=== PATIENT | male | born 1935 | race Caucasian/White ===

== ENCOUNTER → 2018-05-13 | Outpatient (CLI) | payer MEDICARE, OTHER ==
--- NOTE | 2018-05-13 12:46 | XR ---
Abdomen HISTORY: Left renal stone Frontal view of the abdomen on 2 images. There is a scoliosis. Lung bases are clear. No evident pneumoperitoneum or bowel obstruction. Degener ative disc changes are present in the lumbar spine. Question a calcification at the level of the L3 transverse process on the left superimposed over the shadow. There are calcifications within the pelvis. IMPRESSION: Vague density adjacent to the left L3 transverse process, correlate for possible renal pe lvic or ureteral calcification. CT would be of benefit.
== END | disposition home or self-care (01) ==
LOC: RADXRMAIN 10:07
PROVIDERS: ATTEND Urology
DX: N20.0 Calculus of kidney (principal)
CPT/HCPCS: 74018

== ENCOUNTER → 2018-05-19 | Outpatient (CLI) | payer MEDICARE ==
--- NOTE | 2018-05-19 15:58 | CT ---
EXAMINATION TYPE: CT abdomen pelvis wo con DATE OF EXAM: 05/19/2018 COMPARISON: Abdominal radiograph dated 05/13/2018 HISTORY: Calculus of kidney CT DLP: 970.70 mGycm Automated exposure control for dose reduction was used. TECHNIQUE: Helical acquisition of images was performed from the lung bases through the pelvis. FINDINGS: LUNG BASES: There is a benign right lung base calcified granuloma. Bibasilar pleural-parenchymal scar ring is seen. Coronary artery calcifications are partially visualized. LIVER/GB: Fluid attenuated probable cyst is seen near the hepatic dome on series 3 image 31 measuring 8 mm. Remainder of the liver is unremarkable. Gallbladder demonstrates no evidence of cholelithiasis . PANCREAS: No significant abnormality is seen. SPLEEN: No significant abnormality is seen. ADRENALS: There is symmetric prominence of the adrenal glands although they maintain their normal adr eniform shape suggestive of benign adrenal gland hyperplasia. KIDNEYS: Ill-defined fluid attenuated left lower pole renal lesion measures approximately 1.4 cm and likely represents a cyst. Minimal nonspecific bilateral perinephric fat stranding is seen. No evidenc e hydronephrosis or nephrolithiasis. No calculi are seen along the courses of the ureters although ad jacent vascular calcifications are present. No calculi within the urinary bladder identified. FREE AIR: No free air is visualized ADENOPATHY: Solitary prominent but nonenlarged peripancreatic 9 mm short axis lymph node is seen on series 3 image 58. No greater than 1 cm short axis lymph nodes are seen within the abdomen or pelvis. REPRODUCTIVE ORGANS: Prostate gland is slightly heterogenous. OSSEOUS STRUCTURES: Moderate multilevel degenerative changes of the spine. S-shaped scoliotic curvat ure of the thoracolumbar spine. No vertebral body height loss or malalignment. Multilevel degenerativ e disc disease is seen. BOWEL: Scattered colonic diverticula are present without pericolonic fat stranding. No dilated large or small bowel. No evidence of REDUCTION. Appendix is air-filled and within normal limits of size. OTHER: Abdominal aorta is tortuous in course but of normal caliber. Moderate calcific atheromatous ch anges are seen of the abdominal aorta and its branches. IMPRESSION: THE PREVIOUSLY QUESTIONED VAGUE DENSITY OVER THE L3 VERTEBRAL TRANSVERSE PROCESS RELATES TO VASCULAR CALCIFICATIONS. NO EVIDENCE OF OBSTRUCTIVE UROPATHY. NO NEPHROLITHIASIS.
== END | disposition home or self-care (01) ==
LOC: RADCTMAIN 15:12
PROVIDERS: ATTEND Urology
DX: N20.0 Calculus of kidney (principal); Z88.0 Allergy status to penicillin; Z88.2 Allergy status to sulfonamides; Z88.5 Allergy status to narcotic agent
CPT/HCPCS: 74176

== ENCOUNTER → 2018-08-23 | Outpatient (CLI) | payer MEDICARE, OTHER ==
--- NOTE | 2018-08-23 13:43 | US ---
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 Patient states he had yearly ultrasounds in the past for a AAA. EXAM MEASUREMENTS: Abdominal Aorta: Proximal: 2.1cm Mid: 2.0cm Distal: 1.6cm Bifurcation: Rt:1.4cm, Lt:1.2cm IMPRESSION: No sonographic evidence of abdominal aortic aneurysm in the visualized portions of the ab dominal aorta or common iliac arteries.
== END | disposition home or self-care (01) ==
LOC: RADUSWWP 12:52
PROVIDERS: ATTEND Family Medicine
DX: I71.2 Thoracic aortic aneurysm, without rupture (principal)
CPT/HCPCS: 93979

== ENCOUNTER → 2018-09-05 | Outpatient (CLI) | payer MEDICARE, OTHER ==
--- NOTE | 2018-09-05 17:06 | ECHOF ---
Referral Reason:I71.2 Thoracic Aortic Aneurysm, Without Rupture MEASUREMENTS -------- HEIGHT: 175.3 cm WEIGHT: 95.3 kg BP: IVSd: 1.4 cm (0.6 - 1.1) LVIDd: 3.9 cm (3.9 - 5.3) LVPWd: 1.4 cm (0.6 - 1.1) IVSs: 1.7 cm LVIDs: 3.6 cm LVPWs: 1.3 cm Ao Diam: 4.7 cm (2.0 - 3.7) AV Cusp: 1.7 cm (1.5 - 2.6) LA Diam: 3.3 cm (2.7 - 3.8) MV E Cesario: 0.34 m/s MV DecT: 169 ms MV A Cesario: 0.59 m/s MV E/A Ratio: 0.57 RAP: 5.00 mmHg RVSP: 19.78 mmHg FINDINGS -------- Sinus rhythm. This was a technically adequate study. The left ventricular size is normal. There is moderate concentric left ventricular hypertrophy. O verall left ventricular systolic function is low-normal with, an EF between 50 - 55 %. The right ventricle is normal in size. The left atrial size is normal. The right atrial size is normal. There is mild aortic valve sclerosis. There is mild aortic regurgitation. AOV is possible Bicuspi d. 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 Mild mitral annular calcification present. No mitral regurgitation. Mild tricuspid regurgitation present. There is no evidence of pulmonary hypertension. The right v entricular systolic pressure, as measured by Doppler, is 19.78mmHg. There is no pulmonic regurgitation present. There is no pericardial effusion. CONCLUSIONS -------- 1. The left ventricular size is normal. 2. There is moderate concentric left ventricular hypertrophy. 3. Overall left ventricular systolic function is low-normal with, an EF between 50 - 55 %. 4. The right ventricle is normal in size. 5. The left atrial size is normal. 6. The right atrial size is normal. 7. There is mild aortic valve sclerosis. 8. There is mild aortic regurgitation. 9. AOV is possible Bicuspid. 10. 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 11. Mild mitral annular calcification present. 12. No mitral regurgitation. 13. Mild tricuspid regurgitation present. 14. There is no evidence of pulmonary hypertension. 15. The right ventricular systolic pressure, as measured by Doppler, is 19.78mmHg. 16. There is no pulmonic regurgitation present. 17. There is no pericardial effusion. LIGHT RAIL TRANSIT OPERATOR: Namita Gibbs RDCS
== END | disposition home or self-care (01) ==
LOC: RADECHMAIN 16:06
PROVIDERS: ATTEND Family Medicine
DX: I08.2 Rheumatic disorders of both aortic and tricuspid valves (principal)
CPT/HCPCS: 93306

== ENCOUNTER → 2019-04-25 | Outpatient (CLI) | payer MEDICARE, OTHER ==
--- NOTE | 2019-04-25 14:52 | US ---
EXAMINATION TYPE: US carotid duplex BILAT DATE OF EXAM: 04/25/2019 COMPARISON: NONE CLINICAL HISTORY: R42 VERTIGO. Vertigo EXAM MEASUREMENTS: RIGHT: Peak Systolic Velocity (PSV) cm/sec ----- Right CCA: 68.2 ----- Right ICA: 55.3 ----- Right ECA: 95.5 ICA/CCA ratio: 0.8 RIGHT: End Diastole cm/sec ----- Right CCA: 15.7 ----- Right ICA: 19.3 ----- Right ECA: 12.7 LEFT: Peak Systolic Velocity (PSV) cm/sec ----- Left CCA: 59.7 ----- Left ICA: 56.6 ----- Left ECA: 63.8 ICA/CCA ratio: 0.9 LEFT: End Diastole cm/sec ----- Left CCA: 18.9 ----- Left ICA: 19.8 ----- Left ECA: 15.0 VERTEBRALS (direction of flow): Right Vertebral: Antegrade Left Vertebral: Antegrade Rhythm: Normal Ny scale images show no significant plaque formation carotid bulb level bilaterally. Velocity measu rements and ratios are within normal limits and visualized portions of both internal carotid arteries . IMPRESSION: No hemodynamically significant stenosis is seen in either internal carotid artery. Criteria for Assigning % of Stenosis / Diameter reduction (Estimation based on the indirect measurements of the internal carotid artery velocities (ICA PSV). 1. Normal (no stenosis)=ICA PSV < 125 cm/s: ratio < 2.0: ICA EDV<40 cm/s. 2. Less than 50% stenosis=ICA PSV < 125 cm/s: ratio < 2.0: ICA EDV<40 cm/s. 3. 50 to 69% stenosis=ICA PSV of 125 to 230 cm/s: ration 2.0 ? 4.0: ICA EDV 40-100 cm/s. 4. Greater than 70% stenosis to near occlusion= ICA PSV > 230 cm/s: ratio > 4.0: ICA EDV > 100 cm/s. 5. Near occlusion= ICA PSV velocities may be low or undetectable: variable ratio and ICA EDV. 6. Total occlusion=unable to detect flow.
== END | disposition home or self-care (01) ==
LOC: RADUSWWP 14:15
PROVIDERS: ATTEND Family Medicine
DX: R42 Dizziness and giddiness (principal)
CPT/HCPCS: 93880

== ENCOUNTER → 2019-08-16 | Outpatient (CLI) | payer MEDICARE, OTHER ==
[~2019-08-16] MED LIST: DOBUTamine DRIP for NUC MED 500 MG in DEXTROSE/WATER 1 250ML.BAG IV ONE
--- NOTE | 2019-08-16 15:12 | ECHOS ---
STRESS ECHOCARDIOGRAM INDICATIONS: Dyspnea, dizziness. BASELINE HEART RATE: 69 BASELINE BLOOD PRESSURE: 120/82 MAXIMUM HEART RATE: 177 MAXIMUM BLOOD PRESSURE: 139/65 85% MPHR: 118 100% MPHR: 137 MAXIMUM STAGE REACHED: 3 TOTAL EXERCISE TIME: 06/17 CLINICAL INFORMATION: Patient was given dobutamine infusion according to the standard protocol. Peak dobutamine infusion rate was 15 mcg/kg. Initially, intermittent premature atrial contractions were noted. Subsequently patient developed was supraventricular tachycardia at a rate of 170 beats per minute. On dobutamine infusion was terminated and patient converted back into the normal sinus rhythm. The baseline echocardiographic images reveals normal left ventricular chamber size with normal left ventricular systolic function. At the peak dose of dobutamine infusion, normal increase in the wall thickness and contractility is noted. FINAL IMPRESSION: This dobutamine stress echocardiographic study is negative for stress-induced ischemia. Intermittent premature atrial contractions were noted during initially during dobutamine infusion and then patient developed sustained supraventricular tachycardia which terminated after the dobutamine infusion was stopped. MMODL / IJN: [id number] /
== END | disposition home or self-care (01) ==
LOC: RADNMMAIN 09:03
PROVIDERS: ATTEND Family Medicine
DX: I47.1 Supraventricular tachycardia (principal); I49.1 Atrial premature depolarization
CPT/HCPCS: C8930; J1250; Q9950; 93351

== ENCOUNTER 2019-08-25 17:46 | Observation (INO) | payer MEDICARE, OTHER ==
--- NOTE | 2019-08-25 18:24 | ED ---
General Adult HPI <AsiaMillicentLilliana Michael - Last Filed: 08/25/19 19:42> - General Source: patient, EMS Mode of arrival: EMS Limitations: no limitations <Francesco Syed - Last Filed: 08/25/19 21:36> - General Chief complaint: Syncope Stated complaint: syncope/fall Time Seen by Provider: 08/25/19 18:04 - History of Present Illness Initial comments: Dictation was produced using [employer] dictation software. please excuse any grammatical, word or spelling errors. Chief Complaint: 83-year-old male presents after fall. History of Present Illness: 83-year-old male who presents after fall. Patient states that he was leaning over on a porch that was elevated 5 feet off the ground. He was trying to take picture of some trees when mixing her members he is mildly ground. Patient states he doesn't really remember falling. He does complain of some left-sided pain. Patient was on the ground for approximately 5 minutes when he was witnessed to be on the ground by his . EMS was called patient's transfer to the emergency department. Patient denies any history of anticoagulation medications. Besides some mild left flank pain patient has no other pain in his body. He was found have a laceration to his nose. The ROS documented in this emergency department record has been reviewed and confirmed by me. Those systems with pertinent positive or negative responses have been documented in the HPI. All other systems are other negative and/or noncontributory. PHYSICAL EXAM: General Impression: Alert and oriented x3, not in acute distress HEENT: Normocephalic atraumatic, extra-ocular movements intact, pupils equal and reactive to light bilaterally, mucous membranes moist, no septal hematoma, 170 laceration over the bridge of his nose without active bleeding Cardiovascular: Heart regular rate and rhythm, S1&S2 audible, no murmurs, rubs or gallops Chest: Lungs clear to auscultation bilaterally, no rhonchi, no wheeze, no rales Abdomen: Bowel sounds present, abdomen soft, non-tender, non-distended, no organomegaly Musculoskeletal: Pulses present and equal in all extremities, no peripheral edema motor extremity is ranged without complications Motor: no focal deficits noted Neurological: CN II-XII grossly intact, no focal motor or sensory deficits noted Skin: Intact with no visualized rashes Psych: Normal affect and mood ED course: 83 yo Male presents after episode of syncope. Patient suffered a fall proximal 5 feet. Vital signs upon arrival shows mild hypoxia 91 on room air, worse vital signs within acceptable limits. Return evaluation obtained. CBC, coag panel, metabolic panel is unremarkable. Urinalysis negative. Rapid urine drug screen and serum alcohol is negative. Computed tomography scan of the brain, C-spine, chest abdomen and pelvis shows n o acute traumatic injuries. There is concern that patient experienced a cardiac-related syncope given his age and HPI. Discussed patient case Dr. Infante who is willing to accept patients care given that patient experience atraumatic event. Dr. Bosch and cardiology will be on consultation. She reevaluated bedside. He continues to be well-appearing. EKG interpretation: Ventricular rate 74, sinus rhythm with first-degree AV block,. Interval to 40, QS 100, QTC 468. No KS prolongation, no QTC prolongation, no ST or T-wave changes noted. Overall, this EKG is unremarkable (Francesco Syed) - Related Data Home Medications Medication Instructions Recorded Confirmed Cholecalciferol [Vitamin D3] 2,000 unit PO DAILY 05/02/15 08/25/19 Ibuprofen [Motrin] 400 mg PO Q6HR PRN 05/02/15 08/25/19 Lisinopril [Prinivil] 5 mg PO DAILY 05/02/15 08/25/19 Metoprolol Tartrate 12.5 mg PO DAILY 05/02/15 08/25/19 Pravastatin Sodium [Pravachol] 10 mg PO DAILY 05/02/15 08/25/19 Flaxseed [Flaxseed Oil] 1,000 mg PO DAILY 12/06/15 08/25/19 Multivitamin [Men's Multi-Vitamin] 1 tab PO DAILY 12/06/15 08/25/19 [place]-3 Fatty Acids/Fish Oil [Fish 1 cap PO DAILY 12/06/15 08/25/19 Oil 1,000 mg Softgel] Vit C/E/Zn/Coppr/Lutein/Zeaxan 2 cap PO DAILY 12/06/15 08/25/19 [Preservision Areds 2 Softgel] Aspirin EC [Ecotrin Low Dose] 81 mg PO DAILY 08/25/19 08/25/19 Finasteride [Proscar] 5 mg PO DAILY 08/25/19 08/25/19 L.acidoph,Paracasei, B.lactis 1 cap PO DAILY 08/25/19 08/25/19 [Probiotic] Tamsulosin HCl [Flomax] 0.4 mg PO DAILY 08/25/19 08/25/19 Previous Rx's Medication Instructions Recorded traMADol HCL [Ultram] 50 mg PO Q4HR PRN #60 tab 03/20/16 Allergies Allergy/AdvReac Type Severity Reaction Status Date / Time codeine Allergy Nausea & Verified 08/25/19 19:59 Vomiting hydrocodone bitartrate Allergy Nausea & Verified 08/25/19 19:59 [From Vicodin] Vomiting oxycodone Allergy Nausea & Verified 08/25/19 19:59 Vomiting Penicillins Allergy Nausea & Verified 08/25/19 19:59 Vomiting Review of Systems ROS Other: All systems not noted in ROS Statement are negative. <Lilliana Betancourt - Last Filed: 08/25/19 19:42> ROS Other: All systems not noted in ROS Statement are negative. <Francesco Syed - Last Filed: 08/25/19 21:36> ROS Statement: Those systems with pertinent positive or pertinent negative responses have been documented in the HPI. Past Medical History Past Medical History: COPD, Hyperlipidemia, Hypertension, Musculoskeletal Disorder, Osteoarthritis (OA), Pneumonia Additional Past Medical History / Comment(s): PNEUMONIA (12/2015), DDD, BACK PAIN., LEFT SHOULDER PAIN. History of Any Multi-Drug Resistant Organisms: None Reported Past Surgical History: Back Surgery, Hernia Repair, Joint Replacement, Orthopedic Surgery Additional Past Surgical History / Comment(s): RIGHT KNEE ARTHROSCOPY, INGUINAL HERNIA X3, BACK SURGERY X2, RIGHT SHOULDER SURGERY X3 WITH TOTAL SHOULDER, LEFT SHOULDER SURGERY X2.5-16 revision total left shoulder Past Anesthesia/Blood Transfusion Reactions: Motion Sickness, Postoperative Nausea & Vomiting (PONV) Past Psychological History: No Psychological Hx Reported Smoking Status: Former smoker Past Alcohol Use History: None Reported Past Drug Use History: None Reported - Past Family History Mother Family Medical History: No Reported History <Francesco Syed - Last Filed: 08/25/19 21:36> General Exam Limitations: no limitations <Francesco Syed - Last Filed: 08/25/19 21:36> Course Vital Signs 08/25/19 17:54 Temperature 97.9 F Pulse Rate 73 Respiratory 18 Rate Blood Pressure 152/103 O2 Sat by Pulse 91 L Oximetry Procedures - Laceration Laceration #1 Consent Obtained: verbal consent Indication: laceration Site: face (Top of nasal bone) Size (cm): 1 Description: linear Depth: simple, single layer Anesthetic Used: lidocaine 1% Anesthesia Technique: local infiltration Amount (mls): 2 Pre-repair: irrigated extensively Type of Sutures: nylon Size of Sutures: 5-0 Number of Sutures: 3 Technique: simple, interrupted Patient Tolerated Procedure: well <Lilliana Betancourt L - Last Filed: 08/25/19 19:42> Medical Decision Making - Lab Data Result diagrams: 08/25/19 18:18 08/25/19 18:18 <Lilliana Betancourt - Last Filed: 08/25/19 19:42> - Lab Data Result diagrams: 08/25/19 18:18 08/25/19 18:18 <Francesco Syed - Last Filed: 08/25/19 21:36> - Lab Data Lab Results 08/25/19 08/25/19 08/25/19 Range/Units 18:18 18:18 18:18 WBC 7.0 (3.8-10.6) k/uL RBC 4.42 (4.30-5.90) m/uL Hgb 14.0 (13.0-17.5) gm/dL Hct 39.6 (39.0-53.0) % MCV 89.7 (80.0-100.0) fL MCH 31.6 (25.0-35.0) pg MCHC 35.3 (31.0-37.0) g/dL RDW 12.5 (11.5-15.5) % Plt Count 162 (150-450) k/uL Neutrophils % 76 % Lymphocytes % 17 % Monocytes % 4 % Eosinophils % 2 % Basophils % 1 % Neutrophils # 5.3 (1.3-7.7) k/uL Lymphocytes # 1.2 (1.0-4.8) k/uL Monocytes # 0.3 (0-1.0) k/uL Eosinophils # 0.1 (0-0.7) k/uL Basophils # 0.0 (0-0.2) k/uL PT (9.0-12.0) sec INR (<1.2) APTT (22.0-30.0) sec Sodium 139 (137-145) mmol/L Potassium 4.7 (3.5-5.1) mmol/L Chloride 110 H (98-107) mmol/L Carbon Dioxide 20 L (22-30) mmol/L Anion Gap 9 mmol/L BUN 19 (9-20) mg/dL Creatinine 0.96 (0.66-1.25) mg/dL Est GFR (CKD-EPI)AfAm 86 (>60 ml/min/1.73 sqM) Est GFR (CKD-EPI)NonAf 74 (>60 ml/min/1.73 sqM) Glucose 99 (74-99) mg/dL Plasma Lactic Acid Mateo 1.4 (0.7-2.0) mmol/L Calcium 8.3 L (8.4-10.2) mg/dL Total Bilirubin 1.0 (0.2-1.3) mg/dL AST 46 (17-59) U/L ALT 35 (21-72) U/L Alkaline Phosphatase 84 (38-126) U/L Troponin I (0.000-0.034) ng/mL Total Protein 6.6 (6.3-8.2) g/dL Albumin 3.8 (3.5-5.0) g/dL Urine Color Urine Appearance (Clear) Urine pH (5.0-8.0) Ur Specific [place] (1.001-1.035) Urine Protein (Negative) Urine Glucose (UA) (Negative) Urine Ketones (Negative) Urine Blood (Negative) Urine Nitrite (Negative) Urine Bilirubin (Negative) Urine Urobilinogen (<2.0) mg/dL Ur Leukocyte Esterase (Negative) Urine Opiates Screen (NotDetected) Ur Oxycodone Screen (NotDetected) Urine Methadone Screen (NotDetected) Ur Propoxyphene Screen (NotDetected) Ur Barbiturates Screen (NotDetected) U Tricyclic Antidepress (NotDetected) Ur Phencyclidine Scrn (NotDetected) Ur Amphetamines Screen (NotDetected) U Methamphetamines Scrn (NotDetected) U Benzodiazepines Scrn (NotDetected) Urine Cocaine Screen (NotDetected) U Marijuana (THC) Screen (NotDetected) Serum Alcohol <10 mg/dL Blood Type Blood Type Recheck Bld Type Recheck Status Antibody Screen Spec Expiration Date 08/25/19 08/25/19 08/25/19 Range/Units 18:18 18:18 18:18 WBC (3.8-10.6) k/uL RBC (4.30-5.90) m/uL Hgb (13.0-17.5) gm/dL Hct (39.0-53.0) % MCV (80.0-100.0) fL MCH (25.0-35.0) pg MCHC (31.0-37.0) g/dL RDW (11.5-15.5) % Plt Count (150-450) k/uL Neutrophils % % Lymphocytes % % Monocytes % % Eosinophils % % Basophils % % Neutrophils # (1.3-7.7) k/uL Lymphocytes # (1.0-4.8) k/uL Monocytes # (0-1.0) k/uL Eosinophils # (0-0.7) k/uL Basophils # (0-0.2) k/uL PT 11.2 (9.0-12.0) sec INR 1.1 (<1.2) APTT 21.4 L (22.0-30.0) sec Sodium (137-145) mmol/L Potassium (3.5-5.1) mmol/L Chloride (98-107) mmol/L Carbon Dioxide (22-30) mmol/L Anion Gap mmol/L BUN (9-20) mg/dL Creatinine (0.66-1.25) mg/dL Est GFR (CKD-EPI)AfAm (>60 ml/min/1.73 sqM) Est GFR (CKD-EPI)NonAf (>60 ml/min/1.73 sqM) Glucose (74-99) mg/dL Plasma Lactic Acid Mateo (0.7-2.0) mmol/L Calcium (8.4-10.2) mg/dL Total Bilirubin (0.2-1.3) mg/dL AST (17-59) U/L ALT (21-72) U/L Alkaline Phosphatase (38-126) U/L Troponin I <0.012 (0.000-0.034) ng/mL Total Protein (6.3-8.2) g/dL Albumin (3.5-5.0) g/dL Urine Color Urine Appearance (Clear) Urine pH (5.0-8.0) Ur Specific [place] (1.001-1.035) Urine Protein (Negative) Urine Glucose (UA) (Negative) Urine Ketones (Negative) Urine Blood (Negative) Urine Nitrite (Negative) Urine Bilirubin (Negative) Urine Urobilinogen (<2.0) mg/dL Ur Leukocyte Esterase (Negative) Urine Opiates Screen (NotDetected) Ur Oxycodone Screen (NotDetected) Urine Methadone Screen (NotDetected) Ur Propoxyphene Screen (NotDetected) Ur Barbiturates Screen (NotDetected) U Tricyclic Antidepress (NotDetected) Ur Phencyclidine Scrn (NotDetected) Ur Amphetamines Screen (NotDetected) U Methamphetamines Scrn (NotDetected) U Benzodiazepines Scrn (NotDetected) Urine Cocaine Screen (NotDetected) U Marijuana (THC) Screen (NotDetected) Serum Alcohol mg/dL Blood Type O Positive Blood Type Recheck No Previous Record Bld Type Recheck Status CABO Indicated Antibody Screen NEGATIVE Spec Expiration Date 08/28/2019231708/25/19 Range/Units 19:12 WBC (3.8-10.6) k/uL RBC (4.30-5.90) m/uL Hgb (13.0-17.5) gm/dL Hct (39.0-53.0) % MCV (80.0-100.0) fL MCH (25.0-35.0) pg MCHC (31.0-37.0) g/dL RDW (11.5-15.5) % Plt Count (150-450) k/uL Neutrophils % % Lymphocytes % % Monocytes % % Eosinophils % % Basophils % % Neutrophils # (1.3-7.7) k/uL Lymphocytes # (1.0-4.8) k/uL Monocytes # (0-1.0) k/uL Eosinophils # (0-0.7) k/uL Basophils # (0-0.2) k/uL PT (9.0-12.0) sec INR (<1.2) APTT (22.0-30.0) sec Sodium (137-145) mmol/L Potassium (3.5-5.1) mmol/L Chloride (98-107) mmol/L Carbon Dioxide (22-30) mmol/L Anion Gap mmol/L BUN (9-20) mg/dL Creatinine (0.66-1.25) mg/dL Est GFR (CKD-EPI)AfAm (>60 ml/min/1.73 sqM) Est GFR (CKD-EPI)NonAf (>60 ml/min/1.73 sqM) Glucose (74-99) mg/dL Plasma Lactic Acid Mateo (0.7-2.0) mmol/L Calcium (8.4-10.2) mg/dL Total Bilirubin (0.2-1.3) mg/dL AST (17-59) U/L ALT (21-72) U/L Alkaline Phosphatase (38-126) U/L Troponin I (0.000-0.034) ng/mL Total Protein (6.3-8.2) g/dL Albumin (3.5-5.0) g/dL Urine Color Light Yellow Urine Appearance Clear (Clear) Urine pH 6.5 (5.0-8.0) Ur Specific [place] 1.012 (1.001-1.035) Urine Protein Negative (Negative) Urine Glucose (UA) Negative (Negative) Urine Ketones 1+ H (Negative) Urine Blood Negative (Negative) Urine Nitrite Negative (Negative) Urine Bilirubin Negative (Negative) Urine Urobilinogen <2.0 (<2.0) mg/dL Ur Leukocyte Esterase Negative (Negative) Urine Opiates Screen Not Detected (NotDetected) Ur Oxycodone Screen Not Detected (NotDetected) Urine Methadone Screen Not Detected (NotDetected) Ur Propoxyphene Screen Not Detected (NotDetected) Ur Barbiturates Screen Not Detected (NotDetected) U Tricyclic Antidepress Not Detected (NotDetected) Ur Phencyclidine Scrn Not Detected (NotDetected) Ur Amphetamines Screen Not Detected (NotDetected) U Methamphetamines Scrn Not Detected (NotDetected) U Benzodiazepines Scrn Not Detected (NotDetected) Urine Cocaine Screen Not Detected (NotDetected) U Marijuana (THC) Screen Not Detected (NotDetected) Serum Alcohol mg/dL Blood Type Blood Type Recheck Bld Type Recheck Status Antibody Screen Spec Expiration Date Disposition <Lilliana Betancourt - Last Filed: 08/25/19 19:42> Decision Time: 21:36 <Francesco Syed - Last Filed: 08/25/19 21:36> Clinical Impression: Syncope Disposition: ADMITTED IP TO THIS HOSP Condition: Fair Referrals: Jomar Lenoe MD [Primary Care Provider] - 1-2 days
[2019-08-25 18:36] LABS: Basophils % (A) 1 %; Eosinophils # (A) 0.1 k/uL (0-0.7); Eosinophils % (A) 2 %; HCT 39.6 % (39.0-53.0); Lymphocytes # (A) 1.2 k/uL (1.0-4.8); Lymphocytes % (A) 17 %; MCH 31.6 pg (25.0-35.0); MCHC 35.3 g/dL (31.0-37.0); MCV 89.7 fL (80.0-100.0); Mean Platelet Volume 5.7; Monocytes # (A) 0.3 k/uL (0-1.0); Monocytes % (A) 4 %; Neutrophils # (A) 5.3 k/uL (1.3-7.7); Neutrophils % (A) 76 %; Platelet Count 162 k/uL (150-450); RBC 4.42 m/uL (4.30-5.90); RDW 12.5 % (11.5-15.5)
[2019-08-25 18:46] LABS: ALT 35 U/L (21-72); AST 46 U/L (17-59); African American GFR (CKD) 86 (>60 ml/min/1.73 sqM); Albumin 3.8 g/dL (3.5-5.0); Alcohol <10 mg/dL; Alkaline Phosphatase 84 U/L (38-126); Anion Gap 9 mmol/L; Blood Urea Nitrogen 19 mg/dL (9-20); Calcium 8.3 mg/dL (8.4-10.2); Carbon Dioxide 20 mmol/L (22-30); Chloride 110 mmol/L (98-107); Glucose 99 mg/dL (74-99); Sodium 139 mmol/L (137-145); Total Protein 6.6 g/dL (6.3-8.2)
[2019-08-25 18:48] LABS: Potassium 4.7 mmol/L (3.5-5.1)
[2019-08-25] MEDS ORDERED: LIDOCAINE 1%-EPI 1:100,000 20 ML VIAL SQ STA (18:58)
[2019-08-25 18:59] LABS: INR 1.1 (<1.2); Prothrombin Time 11.2 sec (9.0-12.0)
[2019-08-25 19:02] LABS: Partial Thromboplastin Time 21.4 sec (22.0-30.0)
[2019-08-25] MEDS ORDERED: LIDOCAINE 1% INJ 10MG/ML (20 ML MDV) SQ ONE (19:09)
--- NOTE | 2019-08-25 19:09 | XR ---
EXAMINATION TYPE: XR pelvis AP view DATE OF EXAM: 08/25/2019 COMPARISON: 05/13/2018 HISTORY: Pain TECHNIQUE: Single view FINDINGS: The pelvic ring is intact. Proximal femurs and hip joints are intact. Sacroiliac joints flako ear normal. There is no sign of hip dysplasia. Hip joint spaces are fairly normal. IMPRESSION: Negative pelvis exam. No fracture. No change.
--- NOTE | 2019-08-25 19:10 | XR ---
EXAMINATION TYPE: XR chest 1V portable DATE OF EXAM: 08/25/2019 COMPARISON: 12/23/2015 HISTORY: Syncope TECHNIQUE: Single frontal view of the chest is obtained. FINDINGS: There is mild linear density at the lung bases. There is no heart failure. There is no pul monary consolidation. There is bilateral shoulder prosthesis. Thoracic aorta is atheromatous. IMPRESSION: Minimal subsegmental atelectasis at the lung bases increased compared to old exam. No he art failure seen.
--- NOTE | 2019-08-25 19:29 | CT ---
EXAMINATION TYPE: CT brain wendy mora DATE OF EXAM: 08/25/2019 COMPARISON: CT brain 05/02/2015 HISTORY: Pt had LOC and fell off deck. C/o left side pain. Laceration to bridge of nose CT DLP: 1541.10 mGycm Automated exposure control for dose reduction was used. TECHNIQUE: CT scan of the head and cervical spine are performed without contrast. FINDINGS: There is cerebral cortical atrophy. There is no mass effect nor midline shift. There is n o sign of intracranial hemorrhage. The calvarium is intact. Skull base is intact. Cervical vertebra have normal alignment. There is degenerative disc space narrowing from C3 to C7 wit h spurring of the endplates. There is multilevel hypertrophic facet arthropathy. The skull base is in tact. There is no evidence of cervical spine fracture. IMPRESSION: Cerebral atrophy. No acute intracranial abnormality. No change. Multilevel spondylotic change in the cervical spine. No fracture seen.
[2019-08-25 19:30] LABS: Appearance,Urine Clear (Clear); Bilirubin,Urine Negative (Negative); Blood,Urine Negative (Negative); Color,Urine Light Yellow; Glucose,Urine (UA) Negative (Negative); Ketones,Urine 1+ (Negative); Leukocyte Esterase,Urine Negative (Negative); Nitrite,Urine Negative (Negative); PH, Urine 6.5 (5.0-8.0); Protein,Urine Negative (Negative); Specific Gravity,Urine 1.012 (1.001-1.035); Urobilinogen,Urine <2.0 mg/dL (<2.0)
--- NOTE | 2019-08-25 19:37 | CT ---
EXAMINATION TYPE: CT ChestAbdPelvis w con DATE OF EXAM: 08/25/2019 COMPARISON: CT abdomen pelvis 05/19/2018 HISTORY: Pt had LOC and fell off deck. C/o left side pain. Laceration to bridge of nose CT DLP: 1415 mGycm Automated exposure control for dose reduction was used. CONTRAST: CT scan of the chest, abdomen and pelvis is performed without Oral Contrast and with IV Contrast, pat ient injected with 100 mL of Isovue 300. FINDINGS: There is some subsegmental atelectasis at the posterior lung bases. There is no pleural effusion. Hea rt size is normal. There is no pericardial effusion. There is no mediastinal adenopathy. There are no hilar masses. There is 1 cm cyst in the anterior right lobe of the liver. Gallbladder appears normal . Spleen and stomach appear intact. There is small hiatal hernia. There is no evidence of pancreatic mass. Bile ducts are not dilated. There is no adrenal mass. Kidneys show satisfactory contrast opacification. There is no hydronephrosi s. Bladder distends smoothly. There is no inguinal hernia. There is no free fluid in the pelvis. Ther e are numerous diverticula in the sigmoid colon. There is no sign of diverticulitis. Appendix appears normal. There is no mesenteric edema. There is no sign of a bowel obstruction. There is no ascites o r free air. There is spondylotic changes in the lumbar spine. There is osteosclerosis in the L2 vertebral body. T here is some osteosclerosis. There is osteosclerosis also in the right pedicle of S1 vertebra. The ri bs appear intact. Bony pelvis is intact. I see no compression fracture. IMPRESSION: No sign of acute traumatic injury of the chest abdomen pelvis. fibrotic changes and subse gmental atelectasis at the lung bases unchanged. . There is osteoblastic changes in the L2 and S1 vertebra that appear new compared to old CT scan and c ould relate to osseous metastatic disease. Sigmoid diverticulosis without diverticulitis.
[2019-08-25 19:45] LABS: Amphetamine Screen,Urine Not Detected (NotDetected); Barbiturate Screen,Urine Not Detected (NotDetected); Benzodiazepines Screen,Urine Not Detected (NotDetected); Cocaine Screen,Urine Not Detected (NotDetected); Methadone Screen, Urine Not Detected (NotDetected); Opiate Screen,Urine Not Detected (NotDetected); Oxycodone Screen, Urine Not Detected (NotDetected); Phencyclidine Screen,Urine Not Detected (NotDetected); Tricyclic Antidepressant,Urine Not Detected (NotDetected); Urn Cannabinoid Scrn Not Detected (NotDetected)
[2019-08-25] MEDS ORDERED: NALOXONE 0.4 MG/ML 1 ML VIAL IV PRN (21:33)
[2019-08-26] MEDS: ACETAMINOPHEN TAB 325 MG TAB PO PRN ×4 (04:16→22:20)
[2019-08-26] MEDS: SODIUM CHLORIDE 0.9% 1,000 ML IV SCH (06:07)
[2019-08-26 07:36] LABS: HGB 15.2 gm/dL (13.0-17.5); MCH 30.7 pg (25.0-35.0); MCHC 33.8 g/dL (31.0-37.0); Mean Platelet Volume 6.1; Platelet Count 225 k/uL (150-450); RBC 4.94 m/uL (4.30-5.90); RDW 12.8 % (11.5-15.5); WBC 8.5 k/uL (3.8-10.6)
[2019-08-26 08:09] LABS: Calcium 9.4 mg/dL (8.4-10.2); Potassium 4.3 mmol/L (3.5-5.1)
[2019-08-26] MEDS: PRAVASTATIN SODIUM 20 MG TAB PO SCH (09:06)
[2019-08-26] MEDS: ASPIRIN 81 MG PO SCH (09:06)
--- NOTE | 2019-08-26 11:23 | P.GSHP ---
History of Present Illness H&P Date: 08/26/19 Chief Complaint: Fall off porch [id number] male who apparently fell off his porch while attempting to take some pictures of trees. The patient may have had a syncopal episode is unclear. He states he does not remember the fall. He is currently complaining of some left back/flank pain. He was worked up emergency room. He has no significant traumatic injury. Past Medical History Past Medical History: COPD, Hyperlipidemia, Hypertension, Musculoskeletal Disorder, Osteoarthritis (OA), Pneumonia Additional Past Medical History / Comment(s): PNEUMONIA (12/2015), DDD, BACK PAIN., shoulder pain, hx replacement both History of Any Multi-Drug Resistant Organisms: None Reported Past Surgical History: Back Surgery, Hernia Repair, Joint Replacement, Orthope dic Surgery Additional Past Surgical History / Comment(s): RIGHT KNEE ARTHROSCOPY, INGUINAL HERNIA X3, BACK SURGERY X2, RIGHT SHOULDER SURGERY X3 WITH TOTAL SHOULDER, LEFT SHOULDER SURGERY X2.03-19-16 revision total left shoulder Past Anesthesia/Blood Transfusion Reactions: Motion Sickness, Postoperative Nausea & Vomiting (PONV) Additional Past Anesthesia/Blood Transfusion Reaction / Comment(s): anesthesia Past Psychological History: No Psychological Hx Reported Smoking Status: Former smoker Past Alcohol Use History: None Reported Additional Past Alcohol Use History / Comment(s): SMOKED 1 & 1/2 PPD . SMOKED FOR 10 YEARS. QUIT 1965. Past Drug Use History: None Reported - Past Family History Mother Family Medical History: No Reported History Medications and Allergies Home Medications Medication Instructions Recorded Confirmed Type Cholecalciferol [Vitamin D3] 2,000 unit PO DAILY 05/02/15 08/25/19 History Ibuprofen [Motrin] 400 mg PO Q6HR PRN 05/02/15 08/25/19 History Lisinopril [Prinivil] 5 mg PO DAILY 05/02/15 08/25/19 History Metoprolol Tartrate 12.5 mg PO DAILY 05/02/15 08/25/19 History Pravastatin Sodium [Pravachol] 10 mg PO DAILY 05/02/15 08/25/19 History Flaxseed [Flaxseed Oil] 1,000 mg PO DAILY 12/06/15 08/25/19 History Multivitamin [Men's Multi-Vitamin] 1 tab PO DAILY 12/06/15 08/25/19 History Aurora-3 Fatty Acids/Fish Oil [Fish 1 cap PO DAILY 12/06/15 08/25/19 History Oil 1,000 mg Softgel] Vit C/E/Zn/Coppr/Lutein/Zeaxan 2 cap PO DAILY 12/06/15 08/25/19 History [Preservision Areds 2 Softgel] traMADol HCL [Ultram] 50 mg PO Q4HR PRN #60 tab 03/20/16 08/25/19 Rx Aspirin EC [Ecotrin Low Dose] 81 mg PO DAILY 08/25/19 08/25/19 History Finasteride [Proscar] 5 mg PO DAILY 08/25/19 08/25/19 History L.acidoph,Paracasei, B.lactis 1 cap PO DAILY 08/25/19 08/25/19 History [Probiotic] Tamsulosin HCl [Flomax] 0.4 mg PO DAILY 08/25/19 08/25/19 History Allergies Allergy/AdvReac Type Severity Reaction Status Date / Time codeine Allergy Nausea & Verified 08/25/19 19:59 Vomiting hydrocodone bitartrate Allergy Nausea & Verified 08/25/19 19:59 [From Vicodin] Vomiting oxycodone Allergy Nausea & Verified 08/25/19 19:59 Vomiting Penicillins Allergy Nausea & Verified 08/25/19 19:59 Vomiting Surgical - Exam Vital Signs Pulse Ox 93 L 08/25/19 17:49 - General well developed, no distress - Eyes PERRL - ENT Small amount of facial abrasions normal pinna - Neck no masses - Respiratory normal expansion - Cardiovascular Rhythm: regular - Abdomen Abdomen: soft, non tender Results - Labs 08/26/19 06:34 08/26/19 06:34 Abnormal Lab Results - Last 24 Hours (Table) 08/25/19 08/25/19 08/25/19 Range/Units 18:18 18:18 19:12 APTT 21.4 L (22.0-30.0) sec Chloride 110 H (98-107) mmol/L Carbon Dioxide 20 L (22-30) mmol/L Calcium 8.3 L (8.4-10.2) mg/dL Urine Ketones 1+ H (Negative) Diabetes panel 08/25/19 08/26/19 Range/Units 18:18 06:34 Sodium 139 140 (137-145) mmol/L Potassium 4.7 4.3 (3.5-5.1) mmol/L Chloride 110 H 105 (98-107) mmol/L Carbon Dioxide 20 L 25 (22-30) mmol/L BUN 19 19 (9-20) mg/dL Creatinine 0.96 1.12 (0.66-1.25) mg/dL Glucose 99 94 (74-99) mg/dL Calcium 8.3 L 9.4 (8.4-10.2) mg/dL AST 46 (17-59) U/L ALT 35 (21-72) U/L Alkaline Phosphatase 84 (38-126) U/L Total Protein 6.6 (6.3-8.2) g/dL Albumin 3.8 (3.5-5.0) g/dL Calcium panel 08/25/19 08/26/19 Range/Units 18:18 06:34 Calcium 8.3 L 9.4 (8.4-10.2) mg/dL Albumin 3.8 (3.5-5.0) g/dL Pituitary panel 08/25/19 08/26/19 Range/Units 18:18 06:34 Sodium 139 140 (137-145) mmol/L Potassium 4.7 4.3 (3.5-5.1) mmol/L Chloride 110 H 105 (98-107) mmol/L Carbon Dioxide 20 L 25 (22-30) mmol/L BUN 19 19 (9-20) mg/dL Creatinine 0.96 1.12 (0.66-1.25) mg/dL Glucose 99 94 (74-99) mg/dL Calcium 8.3 L 9.4 (8.4-10.2) mg/dL Adrenal panel 08/25/19 08/26/19 Range/Units 18:18 06:34 Sodium 139 140 (137-145) mmol/L Potassium 4.7 4.3 (3.5-5.1) mmol/L Chloride 110 H 105 (98-107) mmol/L Carbon Dioxide 20 L 25 (22-30) mmol/L BUN 19 19 (9-20) mg/dL Creatinine 0.96 1.12 (0.66-1.25) mg/dL Glucose 99 94 (74-99) mg/dL Calcium 8.3 L 9.4 (8.4-10.2) mg/dL Total Bilirubin 1.0 (0.2-1.3) mg/dL AST 46 (17-59) U/L ALT 35 (21-72) U/L Alkaline Phosphatase 84 (38-126) U/L Total Protein 6.6 (6.3-8.2) g/dL Albumin 3.8 (3.5-5.0) g/dL - Imaging Chest x-ray: report reviewed Abdominal x-ray: report reviewed CT scan - pelvis: report reviewed (No significant traumatic injury) Assessment and Plan Assessment: 83-year-old male with fall off porch. Patient will be assessed by medicine. We discussed the discharge home tomorrow.
[2019-08-26] MEDS ORDERED: METOPROLOL TARTRATE 25 MG TAB PO SCH (11:30)
[2019-08-26] MEDS: TAMSULOSIN 0.4 MG CAP.ER.24H PO SCH (12:23)
[2019-08-26] MEDS: FINASTERIDE 5 MG TAB PO SCH (12:23)
--- NOTE | 2019-08-26 15:10 | P.CRDCN ---
<Dahlia Aguilera - Last Filed: 08/26/19 14:53> History of Present Illness History of present illness: This is Dahlia Aguilera PA-C dictating a consult on this patient The patient was interviewed and examined by me as well as by Dr. Nevarez Case discussed with Dr. Nevarez and he agrees with the plan of care IMPRESSION / ASSESSMENT: Syncopal episode associated with facial trauma,history of recurrent dizzy spells, etiology unclear at this time Sustained SVT during dobutamine stress echo Hypertension dyslipidemia COPD PLAN: Echo orthostatic vital signs Repeat echocardiogram Monitor telemetry for bradycardia, pauses or arrhythmias Consider tilt table test HPI Patient is a 83-year-old male with a past medical history significant for hypertension, dyslipidemia, and COPD who presented after syncopal episode. Patient states he was on his deck leaning over the railing getting ready to take a picture when he experienced sudden onset of dizziness and began to feel hot. He fell around 7 feet to the ground below. He has no recollection of the fall. He said he fell straight on his face. He states he has had several days dizzy episodes over the last few years. They seem to occur randomly and are worse when he is standing and resolved when he sits down and rests. Hear not associated with chest pain or shortness of breath or palpitations. He has never actually passed out from them until this episode. His was in the kitchen and saw him fall. He was taken to the emergency department for evaluation. Vital signs were stable, blood pressure was 152/103. X-rays of the pelvis as well as CT of the head CT spine, chest and abdomen and pelvis showed no significant traumatic injury. EKG showed sinus mechanism with prolonged RI, no acute ST or T-wave abnormalities. Telemetry overnight revealed sinus rhythm, rate in the 70s. No significant bradycardia or pauses. No arrhythmias. Patient seen and examined resting comfortably in bed. Denies any further episodes of dizziness, no palpitations, no chest pain or shortness of breath. ROS: No fevers, chills or rigors, no cough, phlegm or expectoration, no nausea, vomiting or diarrhea, no hematuria, dysuria, no musculoskeletal complaints, no strokes or seizures, no skin lesions. EXAMINATION: Temperature 97.6F, pulse 64, respirations 20, blood pressure 106/72, oxygen saturation 91% on room air Patient seen and examined resting comfortably in bed, in no acute distress, scrapes on the face and nose noted Lungs are clear to auscultation bilaterally, no wheezing rhonchi or crackles Heart is regular, normal S1-S2, no murmurs noted No elevated JVD No lower extremity edema REVIEW OF LABS, ECG & MEDICAL DATA WBC 8.5, hemoglobin 15.5, platelets 225, potassium 4.5, BUN 19, creatinine 1.12 Troponin negative His echo in 2018 showed EF 50-55%, possible bicuspid aortic valve, enlarged aortic root 4.7 cm Recent dobutamine stress echo was negative for stress-induced ischemia but he did have intermittent PACs and developed sustained SVT which terminated after the dobutamine infusion was stopped Past Medical History Past Medical History: COPD, Hyperlipidemia, Hypertension, Musculoskeletal Disorder, Osteoarthritis (OA), Pneumonia Additional Past Medical History / Comment(s): PNEUMONIA (12/2015), DDD, BACK PAIN., shoulder pain, hx replacement both History of Any Multi-Drug Resistant Organisms: None Reported Past Surgical History: Back Surgery, Hernia Repair, Joint Replacement, Orthopedic Surgery Additional Past Surgical History / Comment(s): RIGHT KNEE ARTHROSCOPY, INGUINAL HERNIA X3, BACK SURGERY X2, RIGHT SHOULDER SURGERY X3 WITH TOTAL SHOULDER, LEFT SHOULDER SURGERY X2.5--16 revision total left shoulder Past Anesthesia/Blood Transfusion Reactions: Motion Sickness, Postoperative Nausea & Vomiting (PONV) Additional Past Anesthesia/Blood Transfusion Reaction / Comment(s): anesthesia Past Psychological History: No Psychological Hx Reported Smoking Status: Former smoker Past Alcohol Use History: None Reported Additional Past Alcohol Use History / Comment(s): SMOKED 1 & 1/2 PPD . SMOKED FOR 10 YEARS. QUIT 1965. Past Drug Use History: None Reported - Past Family History Mother Family Medical History: No Reported History Medications and Allergies Home Medications Medication Instructions Recorded Confirmed Type Cholecalciferol [Vitamin D3] 2,000 unit PO DAILY 05/02/15 08/25/19 History Ibuprofen [Motrin] 400 mg PO Q6HR PRN 05/02/15 08/25/19 History Lisinopril [Prinivil] 5 mg PO DAILY 05/02/15 08/25/19 History Metoprolol Tartrate 12.5 mg PO DAILY 05/02/15 08/25/19 History Pravastatin Sodium [Pravachol] 10 mg PO DAILY 05/02/15 08/25/19 History Flaxseed [Flaxseed Oil] 1,000 mg PO DAILY 12/06/15 08/25/19 History Multivitamin [Men's Multi-Vitamin] 1 tab PO DAILY 12/06/15 08/25/19 History Ramona-3 Fatty Acids/Fish Oil [Fish 1 cap PO DAILY 12/06/15 08/25/19 History Oil 1,000 mg Softgel] Vit C/E/Zn/Coppr/Lutein/Zeaxan 2 cap PO DAILY 12/06/15 08/25/19 History [Preservision Areds 2 Softgel] traMADol HCL [Ultram] 50 mg PO Q4HR PRN #60 tab 03/20/16 08/25/19 Rx Aspirin EC [Ecotrin Low Dose] 81 mg PO DAILY 08/25/19 08/25/19 History Finasteride [Proscar] 5 mg PO DAILY 08/25/19 08/25/19 History L.acidoph,Paracasei, B.lactis 1 cap PO DAILY 08/25/19 08/25/19 History [Probiotic] Tamsulosin HCl [Flomax] 0.4 mg PO DAILY 08/25/19 08/25/19 History Allergies Allergy/AdvReac Type Severity Reaction Status Date / Time codeine Allergy Nausea & Verified 08/25/19 19:59 Vomiting hydrocodone bitartrate Allergy Nausea & Verified 08/25/19 19:59 [From Vicodin] Vomiting oxycodone Allergy Nausea & Verified 08/25/19 19:59 Vomiting Penicillins Allergy Nausea & Verified 08/25/19 19:59 Vomiting Physical Exam Vitals: Vital Signs Temp Pulse Pulse Resp BP BP Pulse Ox 08/26/19 12:00 97.6 F 64 20 106/72 91 L 08/26/19 08:00 98.2 F 79 16 102/67 91 L 08/26/19 04:00 80 18 113/75 92 L 08/25/19 23:00 97.6 F 96 18 155/93 91 L 08/25/19 22:45 98.0 F 84 16 162/78 98 08/25/19 22:00 98.0 F 81 18 165/78 08/25/19 21:00 80 16 158/87 08/25/19 20:00 90 18 160/108 08/25/19 18:00 77 20 152/103 08/25/19 17:54 97.9 F 73 18 152/103 91 L 08/25/19 17:49 93 L Intake and Output 08/25/19 08/26/19 08/26/19 22:59 06:59 14:59 Intake Total 390 Output Total 600 Balance -600 390 Intake: IV 160 Sodium Chloride 0.9% 1, 160 000 ml @ 20 mls/hr IV . Q24H [facility] Rx#:[id number] Oral 230 Output: Urine 600 Other: Voiding Method Bedside Commode Toilet Weight 89.358 kg 89.1 kg Results 08/26/19 06:34 08/26/19 06:34 Cardiac Enzymes 08/25/19 08/25/19 Range/Units 18:18 18:18 AST 46 (17-59) U/L Troponin I <0.012 (0.000-0.034) ng/mL Coagulation 08/25/19 Range/Units 18:18 PT 11.2 (9.0-12.0) sec APTT 21.4 L (22.0-30.0) sec CBC 08/25/19 08/26/19 Range/Units 18:18 06:34 WBC 7.0 8.5 (3.8-10.6) k/uL RBC 4.42 4.94 (4.30-5.90) m/uL Hgb 14.0 15.2 (13.0-17.5) gm/dL Hct 39.6 45.0 (39.0-53.0) % Plt Count 162 225 (150-450) k/uL Comprehensive Metabolic Panel 08/25/19 08/26/19 Range/Units 18:18 06:34 Sodium 139 140 (137-145) mmol/L Potassium 4.7 4.3 (3.5-5.1) mmol/L Chloride 110 H 105 (98-107) mmol/L Carbon Dioxide 20 L 25 (22-30) mmol/L BUN 19 19 (9-20) mg/dL Creatinine 0.96 1.12 (0.66-1.25) mg/dL Glucose 99 94 (74-99) mg/dL Calcium 8.3 L 9.4 (8.4-10.2) mg/dL AST 46 (17-59) U/L ALT 35 (21-72) U/L Alkaline Phosphatase 84 (38-126) U/L Total Protein 6.6 (6.3-8.2) g/dL Albumin 3.8 (3.5-5.0) g/dL Current Medications Generic Name Dose Route Start Last Admin Trade Name Freq PRN Reason Stop Dose Admin Acetaminophen 650 mg 08/26/19 00:28 08/26/19 10:02 Tylenol Tab PO 650 mg Q6HR PRN Administration Fever and/ or Pain Aspirin 81 mg 08/26/19 09:00 08/26/19 09:06 Aspirin PO 81 mg DAILY [facility] Administration Finasteride 5 mg 08/26/19 11:30 08/26/19 12:23 Proscar PO 5 mg DAILY [facility] Administration Sodium Chloride 1,000 mls @ 20 mls/hr 08/25/19 21:45 08/26/19 06:07 Saline 0.9% IV 20 mls/hr .Q24H [facility] Administration Lisinopril 5 mg 08/26/19 09:00 Zestril PO DAILY [facility] Naloxone HCl 0.2 mg 08/25/19 21:33 Narcan IV Q2M PRN Opioid Reversal Pravastatin Sodium 10 mg 08/26/19 09:00 08/26/19 09:06 Pravachol PO 10 mg DAILY [facility] Administration Tamsulosin HCl 0.4 mg 08/26/19 11:30 08/26/19 12:23 Flomax PO 0.4 mg DAILY [facility] Administration Intake and Output 08/25/19 08/26/19 08/26/19 22:59 06:59 14:59 Intake Total 390 Output Total 600 Balance -600 390 Intake: IV 160 Sodium Chloride 0.9% 1, 160 000 ml @ 20 mls/hr IV . Q24H [facility] Rx#:[id number] Oral 230 Output: Urine 600 Other: Voiding Method Bedside Commode Toilet Weight 89.358 kg 89.1 kg 08/26/19 06:34 08/26/19 06:34 <Grayson Nevarez - Last Filed: 08/26/19 21:47> History of Present Illness History of present illness: Patient was examined Loss of consciousness preceded by dizziness and feeling warm Denied palpitations No arrhythmias documented so far Will plan a tilt table test on Wednesday Continue telemetry monitoring until Wednesday, patient should not be discharged home When he had is doing between stress test in the past, SVT was induced and the patient complained of a feeling of warmth at that time As an outpatient I will evaluate him with event monitoring since he's had several episodes over the last several weeks If no diagnosis is forthcoming on account of lack of symptoms during that period, loop monitor implantation will be considered This gentleman had syncope associated with trauma Physical Exam Vitals: Vital Signs Temp Pulse Pulse Pulse Pulse Pulse Resp 08/26/19 16:00 97.5 F L 75 79 67 20 08/26/19 12:00 97.6 F 64 20 08/26/19 08:00 98.2 F 79 16 08/26/19 04:00 80 18 08/25/19 23:00 97.6 F 96 18 08/25/19 22:45 98.0 F 84 16 08/25/19 22:00 98.0 F 81 18 BP BP BP BP BP Pulse Ox 08/26/19 16:00 126/89 129/88 112/77 92 L 08/26/19 12:00 106/72 91 L 08/26/19 08:00 102/67 91 L 08/26/19 04:00 113/75 92 L 08/25/19 23:00 155/93 91 L 08/25/19 22:45 162/78 98 08/25/19 22:00 165/78 Intake and Output 08/26/19 08/26/19 08/26/19 06:59 14:59 22:59 Intake Total 620 240 Output Total 600 300 Balance -600 620 -60 Intake: IV 160 Sodium Chloride 0.9% 1, 160 000 ml @ 20 mls/hr IV . Q24H [facility] Rx#:[id number] Oral 460 240 Output: Urine 600 300 Other: Voiding Method Bedside Commode Toilet Toilet # Voids 1 # Bowel Movements 1 Weight 89.1 kg Results 08/26/19 06:34 08/26/19 06:34 CBC 08/26/19 Range/Units 06:34 WBC 8.5 (3.8-10.6) k/uL RBC 4.94 (4.30-5.90) m/uL Hgb 15.2 (13.0-17.5) gm/dL Hct 45.0 (39.0-53.0) % Plt Count 225 (150-450) k/uL Comprehensive Metabolic Panel 08/26/19 Range/Units 06:34 Sodium 140 (137-145) mmol/L Potassium 4.3 (3.5-5.1) mmol/L Chloride 105 (98-107) mmol/L Carbon Dioxide 25 (22-30) mmol/L BUN 19 (9-20) mg/dL Creatinine 1.12 (0.66-1.25) mg/dL Glucose 94 (74-99) mg/dL Calcium 9.4 (8.4-10.2) mg/dL Current Medications Generic Name Dose Route Start Last Admin Trade Name Freq PRN Reason Stop Dose Admin Acetaminophen 650 mg 08/26/19 00:28 08/26/19 16:43 Tylenol Tab PO 650 mg Q6HR PRN Administration Fever and/ or Pain Aspirin 81 mg 08/26/19 09:00 08/26/19 09:06 Aspirin PO 81 mg DAILY [facility] Administration Finasteride 5 mg 08/26/19 11:30 08/26/19 12:23 Proscar PO 5 mg DAILY [facility] Administration Sodium Chloride 1,000 mls @ 20 mls/hr 08/25/19 21:45 08/26/19 06:07 Saline 0.9% IV 20 mls/hr .Q24H [facility] Administration Lisinopril 5 mg 08/26/19 09:00 08/26/19 16:43 Zestril PO 5 mg DAILY [facility] Administration Naloxone HCl 0.2 mg 08/25/19 21:33 Narcan IV Q2M PRN Opioid Reversal Pravastatin Sodium 10 mg 08/26/19 09:00 08/26/19 09:06 Pravachol PO 10 mg DAILY [facility] Administration Tamsulosin HCl 0.4 mg 08/26/19 11:30 08/26/19 12:23 Flomax PO 0.4 mg DAILY [facility] Administration Intake and Output 08/26/19 08/26/19 08/26/19 06:59 14:59 22:59 Intake Total 620 240 Output Total 600 300 Balance -600 620 -60 Intake: IV 160 Sodium Chloride 0.9% 1, 160 000 ml @ 20 mls/hr IV . Q24H [facility] Rx#:[id number] Oral 460 240 Output: Urine 600 300 Other: Voiding Method Bedside Commode Toilet Toilet # Voids 1 # Bowel Movements 1 Weight 89.1 kg 08/26/19 06:34 08/26/19 06:34
--- NOTE | 2019-08-26 15:39 | P.CONS ---
History of Present Illness - Reason for Consult Consult date: 08/26/19 Medical management Requesting physician: Jose Infante - Chief Complaint Dizzy and passed out - History of Present Illness Consultation: This is a pleasant 83-year-old patient of Dr. Jomar Leone. Chronic stable medical conditions include COPD, hyperlipidemia, osteoarthritis, chronic low back pain. Patient over the course of years has occasional episodes of dizziness she states. He used to previously followed with Dr. dewey. It was then felt to be age related. Was told to do things slowly. More recently is having more of these episodes. At one point he had it on 3 successive days. He became significantly dizzy.. He did: See his family doctor Dr. Leone. Patient was sent for a stress test that was negative. Patient had couple more episodes. Yesterday he was standing on his deck bending over to to take some pictures with his camera. He became dizzy Again in. He doesn't passed out and fell into the rock garden below. He had passed out. Patient has left chest wall where he is bruised himself. Was admitted under trauma service. Feels well right now. His a cut across his nose. Review of systems: GEN.: Tired EYES: None HEENT: Laceration across his nose NECK: None RESPIRATORY: None CARDIOVASCULAR: None GASTROINTESTINAL: None GENITOURINARY: None MUSCULOSKELETAL: Left lateral chest wall pain LYMPHATICS: None HEMATOLOGICAL: None PSYCHIATRY: None NEUROLOGICAL: No focal symptoms Past medical history to include: COPD, hyperlipidemia, hypertension, osteoarthritis, back pain. Social history: Patient smoked a pack and a half for about 10 years stopped in 1965. No alcohol. Retired. . Family history: Reviewed, noncontributory to presentation Physical examination: VITAL SIGNS: 97.9, 73, 18, 152/103, 91% room air GENERAL: BMI 29.0, sitting up awake. EYES: Pupils equal. Conjunctiva normal. HEENT: Has a scar across the nose on the middle of the bridge of the nose, oral cavity normal. NECK: JVD not raised; masses not palpable. HEART: First and second heart sounds are normal; no edema. LUNGS: Respiratory rate normal; clear to auscultation. ABDOMEN: Soft, nontender, liver spleen not palpable, no masses palpable. PSYCH: Alert and oriented x3; mood and affect normal. NEUROLOGICAL: Cranial nerves grossly intact; no facial asymmetry, power and sensation grossly intact. LYMPHATICS: No lymph nodes palpable in the axilla and neck INVESTIGATIONS, reviewed in the clinical context: White count 7 hemoglobin 14 progression 4.7 creatinine 0.96 Troponin I negative Patient had a chest abdomen and pelvis computed tomography scan, head cervical spine computed tomography scan, chest and pelvic x-ray,-all negative for any fracture Assessment: -Distal patient prolonged time is had intermittent dizziness becoming more frequently recently. Had a recent stress test at cardiology that was negative. These episodes are short-lived but tended to becoming more frequent now. Patient may well have underlying arrhythmia. Since these are not very frequent patient will need an event monitor. And if that is negative patient may probably need a loop monitor. -COPD -Hyperlipidemia -Essential hypertension -Primary osteoarthritis Plan: Patient is put on the youth nutritional monitor. Blood pressures running a bit on the lower side. Getting IV fluids. Did discuss with the patient's family upon given monitor. Cardiology is already of the case. Patient be observed for 24 hours and if okay from a medical standpoint patient can follow with cardiology as an outpatient. Thank you Dr. Infante Past Medical History Past Medical History: COPD, Hyperlipidemia, Hypertension, Musculoskeletal Disorder, Osteoarthritis (OA), Pneumonia Additional Past Medical History / Comment(s): PNEUMONIA (12/2015), DDD, BACK PAIN., shoulder pain, hx replacement both History of Any Multi-Drug Resistant Organisms: None Reported Past Surgical History: Back Surgery, Hernia Repair, Joint Replacement, Orthopedic Surgery Additional Past Surgical History / Comment(s): RIGHT KNEE ARTHROSCOPY, INGUINAL HERNIA X3, BACK SURGERY X2, RIGHT SHOULDER SURGERY X3 WITH TOTAL SHOULDER, LEFT SHOULDER SURGERY X2.5-16 revision total left shoulder Past Anesthesia/Blood Transfusion Reactions: Motion Sickness, Postoperative Nausea & Vomiting (PONV) Additional Past Anesthesia/Blood Transfusion Reaction / Comm: anesthesia Past Psychological History: No Psychological Hx Reported Smoking Status: Former smoker Past Alcohol Use History: None Reported Additional Past Alcohol Use History / Comment(s): SMOKED 1 & 1/2 PPD . SMOKED FOR 10 YEARS. QUIT 1965. Past Drug Use History: None Reported - Past Family History Mother Family Medical History: No Reported History Medications and Allergies Home Medications Medication Instructions Recorded Confirmed Type Cholecalciferol [Vitamin D3] 2,000 unit PO DAILY 05/02/15 08/25/19 History Ibuprofen [Motrin] 400 mg PO Q6HR PRN 05/02/15 08/25/19 History Lisinopril [Prinivil] 5 mg PO DAILY 05/02/15 08/25/19 History Metoprolol Tartrate 12.5 mg PO DAILY 05/02/15 08/25/19 History Pravastatin Sodium [Pravachol] 10 mg PO DAILY 05/02/15 08/25/19 History Flaxseed [Flaxseed Oil] 1,000 mg PO DAILY 12/06/15 08/25/19 History Multivitamin [Men's Multi-Vitamin] 1 tab PO DAILY 12/06/15 08/25/19 History [place]-3 Fatty Acids/Fish Oil [Fish 1 cap PO DAILY 12/06/15 08/25/19 History Oil 1,000 mg Softgel] Vit C/E/Zn/Coppr/Lutein/Zeaxan 2 cap PO DAILY 12/06/15 08/25/19 History [Preservision Areds 2 Softgel] traMADol HCL [Ultram] 50 mg PO Q4HR PRN #60 tab 03/20/16 08/25/19 Rx Aspirin EC [Ecotrin Low Dose] 81 mg PO DAILY 08/25/19 08/25/19 History Finasteride [Proscar] 5 mg PO DAILY 08/25/19 08/25/19 History L.acidoph,Paracasei, B.lactis 1 cap PO DAILY 08/25/19 08/25/19 History [Probiotic] Tamsulosin HCl [Flomax] 0.4 mg PO DAILY 08/25/19 08/25/19 History Allergies Allergy/AdvReac Type Severity Reaction Status Date / Time codeine Allergy Nausea & Verified 08/25/19 19:59 Vomiting hydrocodone bitartrate Allergy Nausea & Verified 08/25/19 19:59 [From Vicodin] Vomiting oxycodone Allergy Nausea & Verified 08/25/19 19:59 Vomiting Penicillins Allergy Nausea & Verified 08/25/19 19:59 Vomiting Physical Exam Vitals: Vital Signs Temp Pulse Pulse Resp BP BP Pulse Ox 08/26/19 08:00 98.2 F 79 16 102/67 91 L 08/26/19 04:00 80 18 113/75 92 L 08/25/19 23:00 97.6 F 96 18 155/93 91 L 08/25/19 22:45 98.0 F 84 16 162/78 98 08/25/19 22:00 98.0 F 81 18 165/78 08/25/19 21:00 80 16 158/87 08/25/19 20:00 90 18 160/108 08/25/19 18:00 77 20 152/103 08/25/19 17:54 97.9 F 73 18 152/103 91 L 08/25/19 17:49 93 L Intake and Output 08/25/19 08/26/19 08/26/19 22:59 06:59 14:59 Intake Total 230 Output Total 600 Balance -600 230 Intake: Oral 230 Output: Urine 600 Other: Voiding Method Bedside Commode Toilet Weight 89.358 kg 89.1 kg Results CBC & Chem 7: 08/26/19 06:34 08/26/19 06:34 Labs: Abnormal Lab Results - Last 24 Hours (Table) 08/25/19 08/25/19 08/25/19 Range/Units 18:18 18:18 19:12 APTT 21.4 L (22.0-30.0) sec Chloride 110 H (98-107) mmol/L Carbon Dioxide 20 L (22-30) mmol/L Calcium 8.3 L (8.4-10.2) mg/dL Urine Ketones 1+ H (Negative)
[2019-08-26] MEDS: LISINOPRIL 5 MG TAB PO SCH (16:43)
[2019-08-27] MEDS: ACETAMINOPHEN TAB 325 MG TAB PO PRN ×4 (06:01→23:38)
[2019-08-27] MEDS: SODIUM CHLORIDE 0.9% 1,000 ML IV SCH ×2 (06:02→08:46)
--- NOTE | 2019-08-27 08:20 | ECHOF ---
Referral Reason:syncope MEASUREMENTS -------- HEIGHT: 175.3 cm WEIGHT: 88.9 kg BP: 102/67 IVSd: 1.4 cm (0.6 - 1.1) LVIDd: 4.0 cm (3.9 - 5.3) LVPWd: 1.5 cm (0.6 - 1.1) IVSs: 1.9 cm LVIDs: 2.8 cm LVPWs: 1.8 cm LA Diam: 3.8 cm (2.7 - 3.8) RVIDd: 3.6 cm (< 3.3) LAESV Index (A-L): 23.14 ml/m Ao Diam: 4.8 cm (2.0 - 3.7) AV Cusp: 2.1 cm (1.5 - 2.6) EPSS: 0.9 cm MV E Cesario: 0.56 m/s MV DecT: 296 ms MV A Cesario: 0.82 m/s MV E/A Ratio: 0.68 AR PHT: 1168 ms RAP: 5.00 mmHg RVSP: 22.72 mmHg MV EF SLOPE: 105.79 mm/s (70 - 150) MV EXCURSION: 12.49 mm (> 18.000) FINDINGS -------- Sinus rhythm. This was a technically adequate study. The left ventricular size is normal. There is moderate concentric left ventricular hypertrophy. O verall left ventricular systolic function is normal with, an EF between 60 - 65 %. The diastolic fi lling pattern is normal for the age of the patient 13.32. The right ventricle is mildly enlarged. Normal LA size by volume 22+/-6 ml/m2. The right atrium is normal in size. Interatrial and interventricular septum intact. There is mild aortic valve sclerosis. There is mild aortic regurgitation. The mitral valve leaflets are mildly thickened. Mild mitral annular calcification present. Mild tricuspid regurgitation present. Right ventricular systolic pressure is normal at < 35 mmHg. The pulmonic valve was not well visualized. 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 IVC Not well visulized. There is no pericardial effusion. CONCLUSIONS -------- 1. Sinus rhythm. 2. This was a technically adequate study. 3. The left ventricular size is normal. 4. There is moderate concentric left ventricular hypertrophy. 5. Overall left ventricular systolic function is normal with, an EF between 60 - 65 %. 6. The diastolic filling pattern is normal for the age of the patient 13.32 7. The right ventricle is mildly enlarged. 8. Normal LA size by volume 22+/-6 ml/m2. 9. The right atrium is normal in size. 10. Interatrial and interventricular septum intact. 11. There is mild aortic valve sclerosis. 12. There is mild aortic regurgitation. 13. The mitral valve leaflets are mildly thickened. 14. Mild mitral annular calcification present. 15. Mild tricuspid regurgitation present. 16. Right ventricular systolic pressure is normal at < 35 mmHg. 17. The pulmonic valve was not well visualized. 18. 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 19. IVC Not well visulized. 20. There is no pericardial effusion. TUTOR: Whitney Carroll RDCS
[2019-08-27] MEDS: ASPIRIN 81 MG PO SCH (08:47)
[2019-08-27] MEDS: FINASTERIDE 5 MG TAB PO SCH (08:48)
[2019-08-27] MEDS: TAMSULOSIN 0.4 MG CAP.ER.24H PO SCH (08:48)
[2019-08-27] MEDS: PRAVASTATIN SODIUM 20 MG TAB PO SCH (08:48)
--- NOTE | 2019-08-27 10:10 | P.PN ---
Progress Note - Text Progress Note Date: 08/27/19 The patient feels better. He has minimal complaints of body aches. He apparently is being worked up by cardiology and will undergo a tilt test tomorrow. On exam his vital signs are stable. His abdomen is soft. There is no significant tenderness. Patiently transferred to the medical service. He has been cleared by trauma. We will see when necessary
--- NOTE | 2019-08-27 11:58 | P.PN ---
Subjective Patient is doing well. No chest discomfort dizziness lightheadedness or palpitations No episodes of presyncope Blood pressure 118 and 79 mmHg normal respirations heart rate 79 beats a minute afebrile 97.9F Normal heart sounds no aortic stenosis murmur noted No carotid bruits noted Breath sounds are clear no rhonchi no crackles Heart sounds S1 and S2 are normal Abdomen soft And is warm no edema His bruises of his nose Impression Recurrent episodes of presyncope 1 episode of syncope preceded by a feeling of warmth SVT noted under between stress testing which terminated spontaneously but was associated with feeling of warmth Normal troponin Suggest Tilt table test tomorrow to evaluate for episode of syncope and recurrent dizzy spells Thereafter either implantation of loop monitor or an event monitor to document any tachycardia or bradycardia arrhythmias Labs are reviewed electrolytes are normal TSH is normal 1.33 Objective - Vital Signs Vital signs: Vital Signs Temp 97.9 F 08/27/19 08:00 Pulse 79 08/27/19 08:00 Resp 20 08/27/19 08:00 BP 118/79 08/27/19 08:00 Pulse Ox 92 L 08/27/19 08:00 Intake & Output 08/26/19 08/27/19 08/27/19 18:59 06:59 18:59 Intake Total 860 180 Output Total 300 600 Balance 560 -600 180 Weight 89.4 kg Intake: IV 160 Sodium Chloride 0.9% 1, 160 000 ml @ 20 mls/hr IV . Q24H [facility] Rx#:[id number] Oral 700 180 Output: Urine 300 600 Other: Voiding Method Toilet Toilet Toilet # Voids 1 1 # Bowel Movements 1 - Labs CBC & Chem 7: 08/26/19 06:34 08/26/19 06:34
[2019-08-27] MEDS: LISINOPRIL 5 MG TAB PO SCH (12:22)
[2019-08-27 16:08] VITALS: RESP 20
--- NOTE | 2019-08-27 22:49 | P.PN ---
Progress Note - Text Progress Note Date: 08/27/19 Interval history: This is a pleasant 83-year-old patient of Dr. Jomar Leone. Chronic stable me dical conditions include COPD, hyperlipidemia, osteoarthritis, chronic low back pain. Patient over the course of years has occasional episodes of dizziness she states. He used to previously followed with Dr. dewey. It was then felt to be age related. Was told to do things slowly. More recently is having more of these episodes. At one point he had it on 3 successive days. He became signifi cantly dizzy.. He did: See his family doctor Dr. Leone. Patient was sent for a stress test that was negative. Patient had couple more episodes. Yesterday he was standing on his deck bending over to to take some pictures with his camera. He became dizzy Again in. He doesn't passed out and fell into the [place] garden below. He had passed out. Patient has left chest wall where he is bruised himself. Was admitted under trauma service. Feels well right now. His a cut across his nose. Today-sitting up. Up to the bathroom. No new issues. Pain is controlled. Review of systems: Was done for constitutional, cardiovascular, GI, pulmonary. relevant finding as above Active Medications Acetaminophen (Tylenol Tab) 650 mg PO Q6HR PRN PRN Reason: Fever and/ or Pain Last Admin: 08/27/19 18:04 Dose: 650 mg Documented by: Aspirin (Aspirin) 81 mg PO DAILY [facility] Last Admin: 08/27/19 08:47 Dose: 81 mg Documented by: Finasteride (Proscar) 5 mg PO DAILY [facility] Last Admin: 08/27/19 08:48 Dose: 5 mg Documented by: Sodium Chloride (Saline 0.9%) 1,000 mls @ 20 mls/hr IV .Q24H [facility] Last Admin: 08/27/19 08:46 Dose: 20 mls/hr Documented by: Lisinopril (Zestril) 5 mg PO DAILY [facility] Last Admin: 08/27/19 12:22 Dose: 5 mg Documented by: Naloxone HCl (Narcan) 0.2 mg IV Q2M PRN PRN Reason: Opioid Reversal Pravastatin Sodium (Pravachol) 10 mg PO DAILY [facility] Last Admin: 08/27/19 08:48 Dose: 10 mg Documented by: Tamsulosin HCl (Flomax) 0.4 mg PO DAILY [facility] Last Admin: 08/27/19 08:48 Dose: 0.4 mg Documented by: Physical examination: VITAL SIGNS: 97.9, 82, 20, 120/75, 92% room air GENERAL: Sitting up, comfortable EYES: Pupils equal. Conjunctiva normal. HEENT: Has a scar across the nose on the middle of the bridge of the nose, oral cavity normal. NECK: JVD not raised; masses not palpable. HEART: First and second heart sounds are normal; no edema. LUNGS: Respiratory rate normal; clear to auscultation. ABDOMEN: Soft, nontender, liver spleen not palpable, no masses palpable. PSYCH: Alert and oriented x3; mood and affect normal. INVESTIGATIONS, reviewed in the clinical context: White count 7 hemoglobin 14 progression 4.7 creatinine 0.96 Troponin I negative Patient had a chest abdomen and pelvis computed tomography scan, head cervical spine computed tomography scan, chest and pelvic x-ray,-all negative for any fracture Assessment: - intermittent dizziness becoming more frequently recently. Had a recent stress test at cardiology that was negative. These episodes are short-lived but tended to becoming more frequent now. Patient may well have underlying arrhythmia. Since these are not very frequent patient will need an event monitor. And if that is negative patient may probably need a loop monitor. -COPD -Hyperlipidemia -Essential hypertension -Primary osteoarthritis Plan: Patient will have a tilt table test tomorrow. If that is negative will need has an outpatient event monitor or loop recorder. Care was discussed with the patient. Medically stable otherwise. Thank you Dr. Infante
[2019-08-28 06:06] VITALS: TEMP 97.6
[2019-08-28] MEDS: PRAVASTATIN SODIUM 20 MG TAB PO SCH (09:21)
[2019-08-28] MEDS: LISINOPRIL 5 MG TAB PO SCH (09:21)
[2019-08-28] MEDS: FINASTERIDE 5 MG TAB PO SCH (09:22)
[2019-08-28] MEDS: ASPIRIN 81 MG PO SCH (09:22)
[2019-08-28] MEDS: TAMSULOSIN 0.4 MG CAP.ER.24H PO SCH (09:22)
[2019-08-28] MEDS: ACETAMINOPHEN TAB 325 MG TAB PO PRN (09:24)
[2019-08-28 11:40] VITALS: BP 122/83; PULSE 74
--- NOTE | 2019-08-28 15:28 | P.PN ---
Subjective Progress Note Date: 08/28/19 Patient is a 83-year-old male with a past medical history significant for hypertension, dyslipidemia, and COPD who presented after syncopal episode. Patient states he was on his deck leaning over the railing getting ready to take a picture when he experienced sudden onset of dizziness and began to feel hot. He fell around 7 feet to the ground below. He has no recollection of the fall. He said he fell straight on his face. He states he has had several days dizzy episodes over the last few years. They seem to occur randomly and are worse when he is standing and resolved when he sits down and rests. He has never actually passed out from them until this episode. His was in the kitchen and saw him fall. He was taken to the emergency department for evaluation. Vital signs were stable, blood pressure was 152/103. X-rays of the pelvis as well as CT of the head CT spine, chest and abdomen and pelvis showed no significant traumatic injury. EKG showed sinus mechanism with prolonged WA, no acute ST or T-wave abnormalities. Telemetry overnight revealed sinus rhythm, rate in the 70s. No significant bradycardia or pauses. No arrhythmias. Patient seen and examined resting comfortably in bed. Denies any further episodes of dizziness, no palpitations, no chest pain or shortness of breath. Patient was noted to have SVT at the time of stress testing. Scheduled today to undergo a tilt table test. Thereafter patient will be possibly discharged home with an event monitor from the office. Blood pressure 122/80 with a heart rate in the 70s, 91% on room air. White blood cell count 8.5, hemoglobin 15.2, platelet count 225. Sodium 140, potassium 4.3, BUN 19 and creatinine 1.1. Objective - Vital Signs Vital signs: Vital Signs Temp 97.6 F 08/28/19 11:39 Pulse 74 08/28/19 11:39 Resp 20 08/28/19 11:39 BP 122/83 08/28/19 11:39 Pulse Ox 91 L 08/28/19 11:39 Intake & Output 08/27/19 08/28/19 08/28/19 18:59 06:59 18:59 Intake Total 640 Output Total 1800 Balance 640 -1800 Weight 89.3 kg Intake: Oral 640 Output: Urine 1800 Other: Voiding Method Toilet Toilet # Voids 1 1 2 # Bowel Movements 1 1 - Exam PHYSICAL EXAMINATION: GENERAL: 83-year-old gentleman in no acute distress at the time of my examination HEENT: Head is atraumatic, normocephalic. Pupils equal, round. Sclera ani cteric. Conjunctiva are clear. Mucous membranes of the mouth are moist. Neck is supple. There is no elevated jugular venous pressure. No carotid bruit is heard. HEART EXAMINATION: Heart S1, S2 normal. No murmur or gallop heard. CHEST EXAMINATION: Lungs are clear to auscultation and precussion. No chest wall tenderness is noted on palpation or with deep breathing. ABDOMEN: Soft, nontender. Bowel sounds are heard. No organomegaly noted. EXTREMITIES: 2+ peripheral pulses with no evidence of peripheral edema and no calf tenderness noted. NEUROLOGIC patient is awake, alert and oriented 3 . . - Labs CBC & Chem 7: 08/26/19 06:34 08/26/19 06:34 Assessment and Plan Plan: Assessment and plan #1 Syncopal episode associated with facial trauma,history of recurrent dizzy spells, etiology unclear at this time #2 Sustained SVT during dobutamine stress echo #3 Hypertension #4 dyslipidemia #5 COPD Plan Patient will undergo tilt table testing today, subsequent to that we recommend on discharge that the patient have a 30 day event monitor from the office. Further recommendations to follow. DNP note has been reviewed, I agree with a documented findings and plan of care. Patient was seen and examined.
--- NOTE | 2019-08-28 18:44 | P.PCN ---
Preoperative Diagnosis: Diagnosis Syncope associated with facial trauma Prior dizziness and warmth No arrhythmias noted on telemetry Twelve-lead ECG was reviewed and shows sinus rhythm mildly prolonged MN interval 248 ms narrow QRS normal ST segments normal QT interval Tilt table test per protocol Blood pressure 129/84 mmHg pulse rate in the 70s Patient was tilted upright at an angle of 70. 2 is the end of the test the patient complained of being dizzy and warm. This was similar to the feeling he experienced before the syncopal spell at home. This was preceded by sinus tachycardia 2 up to 126 beats a minute. It was a sudden drop in blood pressure. Lowest blood pressure recorded was 77/57 mmHg. Patient was presyncopal He was laid supine and his blood pressure normalized and his heart rate came down to 93 beats a minute Impression Neurocardiogenic response to upright tilting This reproduced her clinical prodrome he experienced before passing out However the patient does have a mildly prolonged MN interval He also has a history of SVT when he underwent dobutamine stress testing Suggest Thirty-day event monitoring to look for any tachybradycardia arrhythmias and follow-up thereafter
--- NOTE | 2019-09-02 23:57 | P.PN ---
Progress Note - Text Progress Note Date: 08/28/19 Hospital course: This is a pleasant 83-year-old patient of Dr. Jomar Leone. Chronic stable med ical conditions include COPD, hyperlipidemia, osteoarthritis, chronic low back pain. Patient over the course of years has occasional episodes of dizziness . He used to previously followed with Dr. ellis. It was then felt to be age related-non specific. Was told to do things slowly. More recently is having more of these episodes. At one point he had it on 3 successive days. He became significantly dizzy.. He didsee his family doctor Dr. Leone. Patient was sent for a stress test that was negative. Patient had couple more episodes. Yesterday he was standing on his deck bending over to to take some pictures with his camera. He became dizzy Again . He passed out and fell into the [place] below. Patient has left chest wall bruised . Was admitted under trauma service. Feels well right now. His a cut across his nose. Patient did undergo a tilt table stress that did show-neurocardiogenic response, with similar symptoms. It may be recalled that patient did have a SVT when he underwent dobutamine stress testing. Patient be getting a 30 day event monitor to look for any tachybradycardia arrhythmia and then further decisions will be made. Review of systems: Was done for constitutional, cardiovascular, GI, pulmonary. relevant finding as above Current medications reviewed from recent electronic records. Physical examination: VITAL SIGNS: 97.6, 74, 20, 122/83, 91% room air GENERAL: Sitting up, comfortable EYES: Pupils equal. Conjunctiva normal. HEENT: Has a scar across the nose on the middle of the bridge of the nose, oral cavity normal. NECK: JVD not raised; masses not palpable. HEART: First and second heart sounds are normal; no edema. LUNGS: Respiratory rate normal; clear to auscultation. ABDOMEN: Soft, nontender, liver spleen not palpable, no masses palpable. PSYCH: Alert and oriented x3; mood and affect normal. INVESTIGATIONS, reviewed in the clinical context: White count 7 hemoglobin 14 progression 4.7 creatinine 0.96 Troponin I negative Patient had a chest abdomen and pelvis computed tomography scan, head cervical spine computed tomography scan, chest and pelvic x-ray,-all negative for any fracture Tilt table test-showing neutral congenital response Note: Patient lives alone SVT during stress testing Assessment: - intermittent dizziness becoming more frequently recently. Had a recent stress test at cardiology that was negative but did show SVT.. Tilt table test showing neurocardiogenic response. These episodes are short-lived but tended to becoming more frequent now. Patient may well have underlying arrhythmia. Outpatient event monitor. For 30 days. -COPD -Hyperlipidemia -Essential hypertension -Primary osteoarthritis Plan: Outpatient event monitor. Care was discussed with the patient. Other medicati ons to continue. Thank you Dr. Infante
== END 2019-08-28 15:56 | disposition home or self-care (01) ==
LOC: EC 17:46 → 3SCARD 21:34
PROVIDERS: ADMIT Surgery; ATTEND Surgery
DX: R55 Syncope and collapse (principal); I44.0 Atrioventricular block, first degree; I47.1 Supraventricular tachycardia; I49.1 Atrial premature depolarization; E78.5 Hyperlipidemia, unspecified; R09.02 Hypoxemia; S01.21XA Laceration without foreign body of nose, initial encounter; R10.9 Unspecified abdominal pain; J44.9 Chronic obstructive pulmonary disease, unspecified; M25.512 Pain in left shoulder; G89.29 Other chronic pain; M54.5 Low back pain; M19.91 Primary osteoarthritis, unspecified site; I10 Essential (primary) hypertension; Z79.899 Other long term (current) drug therapy; Z79.1 Long term (current) use of non-steroidal anti-inflammatories (NSAID); Z79.82 Long term (current) use of aspirin; Z79.891 Long term (current) use of opiate analgesic; Z88.5 Allergy status to narcotic agent; Z88.0 Allergy status to penicillin; Z87.01 Personal history of pneumonia (recurrent); Z87.891 Personal history of nicotine dependence; W17.89XA Other fall from one level to another, initial encounter; Y92.008 Other place in unspecified non-institutional (private) residence as the place of occurrence of the external cause
CPT/HCPCS: 12011; 99285; 36415; 93005; 93306; 93660; 86900; 86901; 80053; 80048; 84443; 83605; 84484; 85025; 85027; 85610; 85730; 86850; 81003; 80306; 72170; 71045; 72125; 70450; 71260; 74177; G0378 ×4; G0480; S0138 ×3; J2001; Q9967; 80320

== ENCOUNTER 2019-12-05 06:25 | Emergency (ER) | payer MEDICARE, OTHER ==
[2019-12-05 06:29] VITALS: TEMP 97.8
[2019-12-05] MEDS ORDERED: SODIUM CHLORIDE 0.9% 1,000 ML IV STA ×2 (06:37)
[2019-12-05] MEDS ORDERED: DIPH,PERTUS(ACELL)TETVAC-LF 0.5 ML VIAL IM ONE (06:41)
[2019-12-05] MEDS ORDERED: ONDANSETRON 4 MG/2 ML VIAL IVP STA (06:41)
[2019-12-05] MEDS ORDERED: LIDOCAINE 1% INJ 10MG/ML (20 ML MDV) SQ ONE (06:43)
[2019-12-05] MEDS ORDERED: TOPICAL SKIN ADHESIVE 1 EACH AMP TOPICAL ONE (06:43)
--- NOTE | 2019-12-05 06:44 | ED ---
Dizziness HPI - General Source: patient, EMS, RN notes reviewed, old records reviewed Mode of arrival: EMS <Jumana Salgado - Last Filed: 12/05/19 08:52> <CésarJose - Last Filed: 12/05/19 12:36> - General Chief Complaint: Syncope Stated Complaint: fall Time Seen by Provider: 12/05/19 06:28 - History of Present Illness Initial Comments: Patient is an 83-year-old male who presents emergency department today after syncopal episode while standing in the bathroom. Patient reportedly passed out, hitting his head on the edge of the toilet. He did have a positive loss of consciousness. When he came to he called for his stepsons who came to his help. Patient complains of a laceration over the right eyebrow and scalp. Patient is not on blood thinners. Patient states that he is having no chest pain or other symptoms prior to the syncopal episode. He's had a similar episode a few months ago as well. Patient denies any visual changes at this time. He denies any chest pain, shortness of breath, abdominal pain. He does feel somewhat nauseated. (Jumana Salgado) - Related Data Home Medications Medication Instructions Recorded Confirmed Cholecalciferol [Vitamin D3] 2,000 unit PO DAILY 05/02/15 12/05/19 Ibuprofen [Motrin] 400 mg PO Q6HR PRN 05/02/15 12/05/19 Lisinopril [Prinivil] 5 mg PO DAILY 05/02/15 12/05/19 Pravastatin Sodium [Pravachol] 10 mg PO HS 05/02/15 12/05/19 Flaxseed [Flaxseed Oil] 1,000 mg PO DAILY 12/06/15 12/05/19 Multivitamin [Men's Multi-Vitamin] 1 tab PO DAILY 12/06/15 12/05/19 [place]-3 Fatty Acids/Fish Oil [Fish 1 cap PO DAILY 12/06/15 12/05/19 Oil 1,000 mg Softgel] Vit C/E/Zn/Coppr/Lutein/Zeaxan 1 cap PO DAILY 12/06/15 12/05/19 [Preservision Areds 2 Softgel] Aspirin EC [Ecotrin Low Dose] 81 mg PO DAILY 08/25/19 12/05/19 Finasteride [Proscar] 5 mg PO DAILY 08/25/19 12/05/19 L.acidoph,Paracasei, B.lactis 1 cap PO DAILY 08/25/19 12/05/19 [Probiotic] Tamsulosin HCl [Flomax] 0.4 mg PO DAILY 08/25/19 12/05/19 Acetaminophen Tab [Tylenol Tab] 325 mg PO Q6H PRN 12/05/19 12/05/19 Cetirizine HCl [Zyrtec] 10 mg PO DAILY 12/05/19 12/05/19 Lutein/Zeaxanthin 25mg 25 mg PO DAILY 12/05/19 12/05/19 Metoprolol Succinate [Toprol XL] 12.5 mg PO DAILY 12/05/19 12/05/19 [place] 450mg 450 mg PO DAILY 12/05/19 12/05/19 Zinc 50 mg PO DAILY 12/05/19 12/05/19 Allergies Allergy/AdvReac Type Severity Reaction Status Date / Time codeine AdvReac Nausea & Verified 12/05/19 08:27 Vomiting hydrocodone bitartrate AdvReac Nausea & Verified 12/05/19 08:27 [From Vicodin] Vomiting oxycodone AdvReac Nausea & Verified 12/05/19 08:27 Vomiting Penicillins AdvReac Nausea & Verified 12/05/19 08:27 Vomiting Review of Systems ROS Other: All systems not noted in ROS Statement are negative. <Jumana Salgado - Last Filed: 12/05/19 08:52> ROS Other: All systems not noted in ROS Statement are negative. <Jose Lindsey - Last Filed: 12/05/19 12:36> ROS Statement: Those systems with pertinent positive or pertinent negative responses have been documented in the HPI. Past Medical History Past Medical History: COPD, Hyperlipidemia, Hypertension, Musculoskeletal Disorder, Osteoarthritis (OA), Pneumonia Additional Past Medical History / Comment(s): PNEUMONIA (12/2015), DDD, BACK PAIN., shoulder pain, hx replacement both History of Any Multi-Drug Resistant Organisms: None Reported Past Surgical History: Back Surgery, Hernia Repair, Joint Replacement, Orthopedic Surgery Additional Past Surgical History / Comment(s): RIGHT KNEE ARTHROSCOPY, INGUINAL HERNIA X3, BACK SURGERY X2, RIGHT SHOULDER SURGERY X3 WITH TOTAL SHOULDER, LEFT SHOULDER SURGERY X2.5-12-16 revision total left shoulder Past Anesthesia/Blood Transfusion Reactions: Motion Sickness, Postoperative Na usea & Vomiting (PONV) Additional Past Anesthesia/Blood Transfusion Reaction / Comment(s): anesthesia Past Psychological History: No Psychological Hx Reported Smoking Status: Former smoker Past Alcohol Use History: None Reported Past Drug Use History: None Reported - Past Family History Mother Family Medical History: No Reported History <Jumana Salgado - Last Filed: 12/05/19 08:52> General Exam General appearance: alert, in no apparent distress Head exam: Present: normocephalic, normal inspection, other (Muscle contusions s kin abrasions over the forehead and eyebrow.). Absent: atraumatic Eye exam: Present: normal appearance, PERRL, EOMI. Absent: scleral icterus, conjunctival injection, periorbital swelling ENT exam: Present: normal exam, mucous membranes moist, other (Patient has a 4 cm skin laceration over the right eyebrow.) Neck exam: Present: normal inspection. Absent: tenderness, meningismus, lymphadenopathy Respiratory exam: Present: normal lung sounds bilaterally. Absent: respiratory distress, wheezes, rales, rhonchi, stridor Cardiovascular Exam: Present: regular rate, normal rhythm, normal heart sounds. Absent: systolic murmur, diastolic murmur, rubs, gallop, clicks GI/Abdominal exam: Present: soft, normal bowel sounds. Absent: distended, tenderness, guarding, rebound, rigid Extremities exam: Present: normal inspection, full ROM, normal capillary refill. Absent: tenderness, pedal edema, joint swelling, calf tenderness Back exam: Present: normal inspection Neurological exam: Present: alert, oriented X3, CN II-XII intact <Jumana Salgado - Last Filed: 12/05/19 08:52> - General Exam Comments Initial Comments: 83-year-old male. Alert and oriented 3. Patient appears in no acute distress. (Jumana Salgado) Course <Jose Lindsey - Last Filed: 12/05/19 12:36> Vital Signs 12/05/19 12/05/19 12/05/19 06:26 07:16 09:13 Temperature 97.8 F Pulse Rate 72 70 76 Respiratory 18 16 16 Rate Blood Pressure 142/76 131/84 132/74 O2 Sat by Pulse 91 L 91 L 99 Oximetry - Reevaluation(s) Reevaluation #1: 12/05/19 09:09 PA supervision: I proceeded [id number] evaluation the patient he states he was urinating this morning and during the episode passed out. He did fall he sustained a laceration over his right eyebrow. Is no complaints of loss of function is upper or lower extremities no visual difficulties. CAT scan was performed which showed no evidence of any intracerebral's skull or neck injury. He is awake alert oriented she'll Loyda Coma Scale of 15. I do agree with the assessment and plan. Patient will be treated and released. The presentation is consistent with mincteration syncope. He is encourage increase his oral fluids. (Jose Lindsey) Reevaluation #2: 12/05/19 12:36 PA supervision: I proceeded [id number] evaluation the patient she did present with complaints of a near syncopal episode after bending over and standing up. She has had similar symptoms in the past she currently is awake alert oriented there is evidence clinically however dehydration on inspection of her oral cavity otherwise her exam is unremarkable. Do agree with the assessment and plan. I did discuss with the patient and her family was present. (Jose Lindsey) EKG Findings - EKG Comments: EKG Findings:: EKG shows sinus rhythm with first-degree AV block with occasional PVCs otherwise normal EKG. Ventricular rate is 79 bpm. WV interval is 214 ms. QRS duration is 100 ms. QT QTc is 410/470 ms. <Jumana Salgado - Last Filed: 12/05/19 08:52> Procedures - Laceration Laceration #1 Site: face (Right eyebrow) Size (cm): 4 Description: irregular Depth: simple, single layer Anesthetic Used: lidocaine 1% Anesthesia Technique: local infiltration Amount (mls): 5 Pre-repair: wound explored, irrigated extensively Type of Sutures: nylon, vicryl Size of Sutures: 5-0 Number of Sutures: 9 Technique: simple, interrupted Patient Tolerated Procedure: well, no complications <Jumana Salgado - Last Filed: 12/05/19 08:52> - Laceration Laceration #1 Additional Comments: 2 separate rapid 5-0 Vicryl sutures for ligation of bleeding vessel, patient had 7 separte nylon sutures for wound closure. (Jumana Salgado) Medical Decision Making - Lab Data Result diagrams: 12/05/19 06:29 12/05/19 06:29 - Radiology Data Radiology results: report reviewed <Jumana Salgado - Last Filed: 12/05/19 08:52> - Lab Data Result diagrams: 12/05/19 06:29 12/05/19 06:29 <Jose Lindsey - Last Filed: 12/05/19 12:36> - Medical Decision Making 83-year-old male presents emergency department today for evaluation for syncopal episode. Patient reports he stood up into the bathroom to urinate and passed out. His head hit the Toilet, Did Have a Positive Loss of Conscious. Patient Has a Flap Laceration over the Right Eyebrow. This Was Irrigated and Closed with 9 Sutures in Total. 7 External Sutures and the Wound Was Well Approximated. Given Updated TDAP. Patient labs Was Reviewed and Unremarkable. EKG Shows No Significant Change at This Time. Denies Any Other Complaints of Pain. CT of the Brain and C-Spine Reviewed and Negative for Any Acute Process. CT of the Facial Bones Shows No Fracture. Patient was able ambulate without difficulty. Patient was offered further evaluation for syncope, however was just admitted to the hospital August for similar evaluation. He had tilt table test, and stated that he just has been trying to drink more water and eat more salt. I discussed that the symptoms are likely related to vasovagal episode. He requests to go home to be with his who is currently in hospice. He will be going home with his son-in-law and will be monitored for the next 24 hours. I discussed suture care and monitoring for infection. Discussed concussion syndrome. Discussed the case with Dr. Lindsey. (Jumana Salgado) - Lab Data Lab Results 12/05/19 12/05/19 12/05/19 Range/Units 06:29 06:29 06:29 WBC 6.6 (3.8-10.6) k/uL RBC 5.13 (4.30-5.90) m/uL Hgb 15.4 (13.0-17.5) gm/dL Hct 45.8 (39.0-53.0) % MCV 89.2 (80.0-100.0) fL MCH 30.1 (25.0-35.0) pg MCHC 33.8 (31.0-37.0) g/dL RDW 12.5 (11.5-15.5) % Plt Count 246 (150-450) k/uL Neutrophils % 66 % Lymphocytes % 24 % Monocytes % 5 % Eosinophils % 2 % Basophils % 0 % Neutrophils # 4.4 (1.3-7.7) k/uL Lymphocytes # 1.6 (1.0-4.8) k/uL Monocytes # 0.4 (0-1.0) k/uL Eosinophils # 0.1 (0-0.7) k/uL Basophils # 0.0 (0-0.2) k/uL PT 10.8 (9.0-12.0) sec INR 1.1 (<1.2) APTT 23.1 (22.0-30.0) sec Sodium 137 (137-145) mmol/L Potassium 4.1 (3.5-5.1) mmol/L Chloride 105 (98-107) mmol/L Carbon Dioxide 22 (22-30) mmol/L Anion Gap 10 mmol/L BUN 16 (9-20) mg/dL Creatinine 1.09 (0.66-1.25) mg/dL Est GFR (CKD-EPI)AfAm 73 (>60 ml/min/1.73 sqM) Est GFR (CKD-EPI)NonAf 63 (>60 ml/min/1.73 sqM) Glucose 139 H (74-99) mg/dL Calcium 9.1 (8.4-10.2) mg/dL Magnesium 2.0 (1.6-2.3) mg/dL Total Bilirubin 0.8 (0.2-1.3) mg/dL AST 34 (17-59) U/L ALT 26 (4-49) U/L Alkaline Phosphatase 111 (38-126) U/L Troponin I (0.000-0.034) ng/mL Total Protein 7.1 (6.3-8.2) g/dL Albumin 4.2 (3.5-5.0) g/dL Urine Color Urine Appearance (Clear) Urine pH (5.0-8.0) Ur Specific [place] (1.001-1.035) Urine Protein (Negative) Urine Glucose (UA) (Negative) Urine Ketones (Negative) Urine Blood (Negative) Urine Nitrite (Negative) Urine Bilirubin (Negative) Urine Urobilinogen (<2.0) mg/dL Ur Leukocyte Esterase (Negative) Urine RBC (0-5) /hpf Urine WBC (0-5) /hpf Urine Mucus (None) /hpf 12/05/19 12/05/19 Range/Units 06:29 08:30 WBC (3.8-10.6) k/uL RBC (4.30-5.90) m/uL Hgb (13.0-17.5) gm/dL Hct (39.0-53.0) % MCV (80.0-100.0) fL MCH (25.0-35.0) pg MCHC (31.0-37.0) g/dL RDW (11.5-15.5) % Plt Count (150-450) k/uL Neutrophils % % Lymphocytes % % Monocytes % % Eosinophils % % Basophils % % Neutrophils # (1.3-7.7) k/uL Lymphocytes # (1.0-4.8) k/uL Monocytes # (0-1.0) k/uL Eosinophils # (0-0.7) k/uL Basophils # (0-0.2) k/uL PT (9.0-12.0) sec INR (<1.2) APTT (22.0-30.0) sec Sodium (137-145) mmol/L Potassium (3.5-5.1) mmol/L Chloride (98-107) mmol/L Carbon Dioxide (22-30) mmol/L Anion Gap mmol/L BUN (9-20) mg/dL Creatinine (0.66-1.25) mg/dL Est GFR (CKD-EPI)AfAm (>60 ml/min/1.73 sqM) Est GFR (CKD-EPI)NonAf (>60 ml/min/1.73 sqM) Glucose (74-99) mg/dL Calcium (8.4-10.2) mg/dL Magnesium (1.6-2.3) mg/dL Total Bilirubin (0.2-1.3) mg/dL AST (17-59) U/L ALT (4-49) U/L Alkaline Phosphatase (38-126) U/L Troponin I <0.012 (0.000-0.034) ng/mL Total Protein (6.3-8.2) g/dL Albumin (3.5-5.0) g/dL Urine Color Light Yellow Urine Appearance Clear (Clear) Urine pH 6.5 (5.0-8.0) Ur Specific [place] 1.010 (1.001-1.035) Urine Protein Negative (Negative) Urine Glucose (UA) Negative (Negative) Urine Ketones Negative (Negative) Urine Blood Trace H (Negative) Urine Nitrite Negative (Negative) Urine Bilirubin Negative (Negative) Urine Urobilinogen <2.0 (<2.0) mg/dL Ur Leukocyte Esterase Negative (Negative) Urine RBC 5 (0-5) /hpf Urine WBC 1 (0-5) /hpf Urine Mucus Rare H (None) /hpf - Radiology Data Chest x-rays negative for any acute cardiopulmonary disease. No evidence for to place her displaced facial bone fracture. Age-related atrophy and chronic small vessel ischemic changes acute intracranial process seen at this time. No evidence for acute fracture or subluxation of the cervical spine. (Jumana Salgado) Disposition Is patient prescribed a controlled substance at d/c from ED?: No Time of Disposition: 08:56 <Jumana Salgado - Last Filed: 12/05/19 08:52> <Jose Lindsey - Last Filed: 12/05/19 12:36> Clinical Impression: Fall, Facial laceration, Syncope Disposition: HOME SELF-CARE Condition: Good Instructions (If sedation given, give patient instructions): Laceration (ED), Concussion (ED) Additional Instructions: Please return to the emergency room in 8-10 days to have sutures removed. Please leave wound covered for the first 24-48 hours and then leave open to air after that time. Please use clean soap and water to clean the suture area to prevent scabbing over the top of your sutures. Please watch for any signs of infection which may include but not limited to increased pain, swelling, redness, fever or chills. Please return to the emergency room if any signs of infection do occur. Please return to the emergency room for any other concerns or complications. Patient should be monitored for the next 24 hours. Patient can sleep but should be awoken every few hours. There is any signs and mental status changes return promptly to the emergency department. Recommended following up with primary care physician. Referrals: Jomar Leone MD [Primary Care Provider] - 1-2 days
[2019-12-05 07:04] LABS: Albumin 4.2 g/dL (3.5-5.0); Calcium 9.1 mg/dL (8.4-10.2); Potassium 4.1 mmol/L (3.5-5.1); Total Bilirubin 0.8 mg/dL (0.2-1.3); Total Protein 7.1 g/dL (6.3-8.2)
[2019-12-05 07:15] LABS: INR 1.1 (<1.2); Partial Thromboplastin Time 23.1 sec (22.0-30.0); Prothrombin Time 10.8 sec (9.0-12.0)
[2019-12-05 07:17] VITALS: RESP 16
[2019-12-05 07:19] LABS: Basophils % (A) 0 %; Eosinophils # (A) 0.1 k/uL (0-0.7); Eosinophils % (A) 2 %; HCT 45.8 % (39.0-53.0); HGB 15.4 gm/dL (13.0-17.5); Lymphocytes # (A) 1.6 k/uL (1.0-4.8); Lymphocytes % (A) 24 %; MCH 30.1 pg (25.0-35.0); MCHC 33.8 g/dL (31.0-37.0); MCV 89.2 fL (80.0-100.0); Monocytes # (A) 0.4 k/uL (0-1.0); Monocytes % (A) 5 %; Neutrophils # (A) 4.4 k/uL (1.3-7.7); Neutrophils % (A) 66 %; Platelet Count 246 k/uL (150-450); RBC 5.13 m/uL (4.30-5.90); RDW 12.5 % (11.5-15.5); WBC 6.6 k/uL (3.8-10.6)
--- NOTE | 2019-12-05 07:52 | CT ---
EXAMINATION TYPE: CT brain wendy spence con DATE OF EXAM: 12/05/2019 COMPARISON: 08/25/2019 HISTORY: Fall CT DLP: 1119.[address] of the brain was performed. The ventricles, basal cisterns and sulci overlying the cerebral convexities demonstrate mild enlargem ent. There is no evidence for intracranial hemorrhage or sulcal effacement. There is decreased attenuatio n about the periventricular white matter and deep white matter of both cerebral hemispheres, compatib le with chronic small vessel ischemia. No mass effects are seen. If symptoms persist consider MRI. Osseous calvarium is intact. Right frontal scalp hematoma and laceration suggested. IMPRESSION: 1. Age related atrophic and chronic small vessel ischemic change without acute intracranial process seen at this time. CT Cervical Spine: Unenhanced CT of the cervical spine was performed with bone and soft tissue window settings submitted . Coronal and sagittal reconstruction is obtained. There is normal alignment and prevertebral soft tissues. No evidence for acute cervical fracture . Scattered degenerative disc disease and spondylosis. Biapical scarring. IMPRESSION: 1. No evidence for acute fracture or subluxation of the cervical spine.
--- NOTE | 2019-12-05 07:56 | CT ---
EXAMINATION TYPE: CT facial bones wo con DATE OF EXAM: 12/05/2019 COMPARISON: None HISTORY: Fall CT DLP: [address] of the facial bones was performed in the axial and coronal planes. Bone and soft tissu e window settings are submitted. Right frontal scalp hematoma with small laceration noted. I do not see evidence for displaced facial bone fracture or depressed facial bone fracture. The globes are intact. Paranasal sinuses are well-aerated. IMPRESSION: 1. No evidence for depressed or displaced facial bone fracture.
--- NOTE | 2019-12-05 08:22 | XR ---
EXAMINATION TYPE: XR chest 2V DATE OF EXAM: 12/05/2019 COMPARISON: 08/25/2019 HISTORY: Shortness of breath TECHNIQUE: Frontal and lateral views of the chest are obtained. FINDINGS: Scattered senescent parenchymal changes noted. Hyperinflation compatible with COPD. No evidence for infiltrate. No evidence for atelectasis. Heart size is stable. Mediastinal structures are stable and grossly unremarkable. No evidence for hilar prominence. Degenerative changes dorsal spine. IMPRESSION: 1. No evidence for acute pulmonary disease.
[2019-12-05 08:46] LABS: Appearance,Urine Clear (Clear); Bilirubin,Urine Negative (Negative); Blood,Urine Trace (Negative); Color,Urine Light Yellow; Glucose,Urine (UA) Negative (Negative); Ketones,Urine Negative (Negative); Leukocyte Esterase,Urine Negative (Negative); Mucus,Urine Rare /hpf; Nitrite,Urine Negative (Negative); PH, Urine 6.5 (5.0-8.0); Protein,Urine Negative (Negative); RBC,Urine 5 /hpf (0-5); Urobilinogen,Urine <2.0 mg/dL (<2.0); WBC,Urine 1 /hpf (0-5)
[2019-12-05 09:13] VITALS: BP 132/74; PULSE 76
== END 2019-12-05 09:07 | disposition home or self-care (01) ==
LOC: EC 06:25
DX: S01.111A Laceration without foreign body of right eyelid and periocular area, initial encounter (principal); R55 Syncope and collapse; E78.5 Hyperlipidemia, unspecified; I10 Essential (primary) hypertension; M19.90 Unspecified osteoarthritis, unspecified site; Z96.698 Presence of other orthopedic joint implants; Z87.891 Personal history of nicotine dependence; Z79.82 Long term (current) use of aspirin; Z79.899 Other long term (current) drug therapy; Z88.5 Allergy status to narcotic agent; Z88.0 Allergy status to penicillin; Z23 Encounter for immunization; W19.XXXA Unspecified fall, initial encounter; Y92.002 Bathroom of unspecified non-institutional (private) residence as the place of occurrence of the external cause
CPT/HCPCS: 99285 ×2; 12013 ×2; 96374 ×2; 96361 ×3; 90471 ×2; 36415; 93005; 80053; 83735; 84484; 85025; 85610; 85730; 81001; 71046; 72125; 70486; 70450; 90715; J2405; J2001

== ENCOUNTER → 2020-03-29 | Outpatient (CLI) | payer MEDICARE, OTHER | END | disposition home or self-care (01) | LOC: LABWHC1 09:58 | PROVIDERS: ATTEND Internal Medicine Clinical Cardiac Electrophysiology | DX: Z11.59 Encounter for screening for other viral diseases (principal) | CPT/HCPCS: 87635 ==

== ENCOUNTER 2020-04-02 08:36 | Day surgery (SDC) | payer MEDICARE, OTHER ==
[2020-03-28 12:13] VITALS: BMI 26.9
[~2020-04-02 08:36] MED LIST changes: +CLINDAMYCIN 900 MG in DEXTROSE 5% IN WATER 50 ML IVPB ONE; -DOBUTamine DRIP for NUC MED 500 MG in DEXTROSE/WATER 1 250ML.BAG IV ONE; +SODIUM CHLORIDE 0.9% 1,000 ML IV SCH
[2020-04-02 09:16] VITALS: RESP 16; TEMP 98.1
[2020-04-02] MEDS ORDERED: SODIUM CHLORIDE 0.9% 500 ML 500 ML IV ONE (09:16)
[2020-04-02] MEDS ORDERED: LIDOCAINE 1% INJ 10MG/ML (20 ML MDV) ONE (10:34)
[2020-04-02] MEDS ORDERED: LIDOCAINE 1% INJ 10MG/ML (20 ML MDV) SQ ONE (11:18)
[2020-04-02] MEDS ORDERED: MIDAZOLAM 2 MG/2 ML VIAL IV ONE (11:18)
--- NOTE | 2020-04-02 11:30 | P.PCN ---
Preoperative Diagnosis: Loop monitor implant Primary physicians: Dr. Leone Mechanical Applications Engineer: Dr. Nevarez Indication: Sick Sinus Syndrome syncope atrial fibrillation Patient was brought to the EP lab in a fasting state. Written informed consent was obtained prior to the procedure. The left pectoral area was prepped and draped per protocol. Intravenous antibiotic was administered preoperatively. A subcutaneous Loop monitor was implanted successfully and the wound was closed per protocol. The device was programmed to detect significant kye- arrhythmic and tachy-arrhythmic events, per protocol. Device and programming details: Programmed for sick sinus syndrome syncope and A. fib Patient underwent EP procedure under conscious sedation/moderate sedation, monitoring of the level of consciousness and physiologic parameters including but not limited to vital signs and oxygenation. Patient tolerated the procedure well without any acute complications. Start time: 1117 Stop time: 1123
--- NOTE | 2020-04-02 11:32 | P.PRLE ---
RE: Jose Luis Brooks Dear Jomar Amaya underwent implantation of loop monitor successfully for evaluation of syncope and atrial fibrillation I will send a follow-up note if he detect any abnormalities Thank you for entrusting me with the care of the patient Warm regards Sincerely Grayson Nevarez
[2020-04-02 12:55] VITALS: BP 146/81; PULSE 68
== END 2020-04-02 12:45 | disposition home or self-care (01) ==
LOC: CATHEP 08:36
PROVIDERS: ATTEND Internal Medicine Clinical Cardiac Electrophysiology
DX: I49.5 Sick sinus syndrome (principal); I47.1 Supraventricular tachycardia; R55 Syncope and collapse; I48.91 Unspecified atrial fibrillation; I49.3 Ventricular premature depolarization; Z72.0 Tobacco use; I10 Essential (primary) hypertension; E78.5 Hyperlipidemia, unspecified; Z82.49 Family history of ischemic heart disease and other diseases of the circulatory system; Z79.82 Long term (current) use of aspirin; Z79.899 Other long term (current) drug therapy; Z88.5 Allergy status to narcotic agent; Z88.0 Allergy status to penicillin; Z88.2 Allergy status to sulfonamides
CPT/HCPCS: 33285; C1764; J2250; J2001

== ENCOUNTER → 2020-05-30 | Outpatient (CLI) | payer MEDICARE, OTHER ==
--- NOTE | 2020-05-30 09:01 | XR ---
EXAMINATION TYPE: XR chest 2V DATE OF EXAM: 05/30/2020 COMPARISON: 12/05/2019 TECHNIQUE: PA and lateral views submitted. HISTORY: Prostate cancer FINDINGS: The lungs are clear and there is no pneumothorax, pleural effusion, or focal pneumonia. Heart size normal. There is postoperative change involving the shoulders. No overt failure. Subsegmental changes at both lung bases. Hypertrophic and degenerative change of the spine. Hyperinflation suggests COPD. There is a 7 mm nodule at the right lung base. IMPRESSION: 1. No acute process. 2. COPD with 7 mm nodule right lung base not definitively seen on the prior exam. CT scan chest recom mended
--- NOTE | 2020-05-30 11:12 | CT ---
EXAMINATION TYPE: CT abdomen pelvis w con DATE OF EXAM: 05/30/2020 COMPARISON: CT August 25, 2019 and older 2018. HISTORY: Prostate cancer CT DLP: 1206.3 mGycm, Automated Exposure Control for Dose Reduction was Utilized. CONTRAST: CT scan of the abdomen and pelvis is performed with oral and with IV Contrast, patient injected with 100 mL of Isovue 300. FINDINGS: LUNG BASES: Persistent mild cardiomegaly with mild to moderate bibasilar linear scarring and/or atele ctasis. LIVER/GB: No significant abnormality is appreciated. PANCREAS: No significant abnormality is seen. SPLEEN: No significant abnormality is seen. ADRENALS: No significant abnormality is seen. KIDNEYS: Symmetric cord measuring uptake and excretion with moderate right-sided hydronephrosis but n o obstructing mass or calculus. There is simple appearing 1.2 cm thin-walled cyst left kidney mid to lower pole level axial image 35 series 7. Mildly distended bladder with some trabeculation and small outpouchings or diverticulum along the superior border. BOWEL: Oral contrast reaches level of mid transverse colon. No suspicious small or large bowel dilata tion. Normal-appearing appendix from the cecum in the right lower quadrant. Diverticula in the left a nd sigmoid colon. No CT evidence for acute diverticulitis. Normal-appearing appendix from base of cec um in the right upper pelvis. PROSTATE/SEMINAL VESICLES: Mildly enlarged prostate gland consistent with BPH bulging on bladder base . No suspicious new adjacent adenopathy. Seminal vesicles are within normal limits. LYMPH NODES: No greater than 1cm abdominal or pelvic lymph nodes are appreciated. OSSEOUS STRUCTURES: Interval progression of osseous sclerotic metastatic disease with new areas of sc lerosis present including L5 and S1 level, superior L4 level, along with diffuse T10 and fairly diffu se T12 involvement. New diffuse sacral involvement. Persistent multilevel disc space narrowing and sp urring in the lumbar spine with multilevel spondylolisthesis and facet arthropathy. OTHER: No significant additional abnormality is seen. IMPRESSION: Diffuse osseous metastatic disease progression. No new mass or adenopathy otherwise seen.
--- NOTE | 2020-05-30 13:44 | NM ---
EXAMINATION TYPE: NM bone scan whole body DATE OF EXAM: 05/30/2020 COMPARISON: CT scan 05/30/2020 HISTORY: Prostate cancer Delayed whole-body scanning was performed following the injection of 24.6 mCi Tc 99m MDP. Images acq uired 3.5 hours post injection. FINDINGS: There is diffuse abnormal uptake throughout virtually all osseous structures visualized including the calvarium, appendicular and axial skeleton compatible with widespread metastases. Abnormal uptake involving the feet and knees likely post arthritic. IMPRESSION: Diffuse abnormal uptake throughout virtually all osseous structures compatible with widespread metast ases
== END | disposition home or self-care (01) ==
LOC: RADCTMAIN 08:25
PROVIDERS: ATTEND Urology
DX: C61 Malignant neoplasm of prostate (principal); J44.9 Chronic obstructive pulmonary disease, unspecified; R91.1 Solitary pulmonary nodule; Z88.0 Allergy status to penicillin; Z88.2 Allergy status to sulfonamides; Z88.5 Allergy status to narcotic agent
CPT/HCPCS: 82565; 84520; 71046; 74177; 78306; 36415; A9503; Q9967

== ENCOUNTER → 2020-07-31 | Outpatient (CLI) | payer MEDICARE, OTHER ==
--- NOTE | 2020-07-31 15:02 | XR ---
EXAMINATION TYPE: XR lumbosacral spine min 4V DATE OF EXAM: 07/31/2020 CLINICAL HISTORY: pain COMPARISON: 05/10/2010 TECHNIQUE: Frontal, lateral, and oblique images of the lumbar spine are obtained. FINDINGS: Scoliosis convex to the right. There is osseous sclerosis identified compatible with metast atic disease. Loss of height involving T12 is of uncertain age and/or etiology although pathologic fr acture is not excluded. Severe multilevel degenerative disc disease and spondylosis. IMPRESSION: Findings compatible with metastatic disease. Loss of vertebral body height involving T12 may be pathologic in nature.
== END | disposition home or self-care (01) ==
LOC: RADXRMAIN 14:32
PROVIDERS: ATTEND Urology
DX: C61 Malignant neoplasm of prostate (principal)
CPT/HCPCS: 72110

== ENCOUNTER → 2021-06-18 | Outpatient (CLI) | payer MEDICARE, OTHER ==
[2021-06-18 22:31] LABS: African American GFR (CKD) 80.3 (60.0-200.0); Non-African American GFR(CKD) 69.3 (60.0-200.0)
== END | disposition home or self-care (01) ==
LOC: LABWHC1 10:23
PROVIDERS: ATTEND Internal Medicine Clinical Cardiac Electrophysiology
DX: I10 Essential (primary) hypertension (principal); I44.30 Unspecified atrioventricular block
CPT/HCPCS: 36415; 82565; 84520

== ENCOUNTER → 2021-07-07 | Outpatient (CLI) | payer MEDICARE, OTHER ==
[2021-07-07 14:30] LABS: African American GFR (CKD) >90 (>60 ml/min/1.73 sqM); Blood Urea Nitrogen 22 mg/dL (9-20); Non-African American GFR(CKD) 79 (>60 ml/min/1.73 sqM)
--- NOTE | 2021-07-07 15:50 | CT ---
EXAMINATION TYPE: CT angio thor/abd pel aorta DATE OF EXAM: 07/07/2021 COMPARISON: CT abdomen and pelvis May 30, 2020 and whole-body CT August 25, 2019. Whole body bone s can May 30, 2020 HISTORY: Supraventricular tachycardia and hypertension. History of prostate cancer. CT DLP: 1506.8 mGycm. Automated Exposure Control for Dose Reduction was Utilized. CONTRAST: CTA scan of the thorax, abdomen and pelvis is performed without and with IV Contrast, patient injecte d with 100ml mL of Isovue 370. Aneurysm protocol with 3-D reconstruction images created on an [employer] workstation and reviewed. FINDINGS: VASCULAR: Noncontrast images show no suspicious hyperdensity to suggest intramural hematoma. Satisfac tory opacification of the central pulmonary arteries on postcontrast images. Satisfactory enhancement thoracic aorta up to 4.1 cm axial image 29. Normal 3 vessel origin from the aortic arch. Mild to mod erate mixed peripheral plaque in the descending thoracic aorta which has a ectatic course. No signifi cant stenosis at origin of celiac artery and SMA. Patent single renal arteries bilaterally and MARÍA ELENA. N o aneurysm extension into abdominal aorta. Mild to moderate mixed plaque in the common iliac artery b ranches. This extends into common femoral artery branches in the bilateral groin. No significant foca l stenosis. No linear hypodensity to suggest dissection. LUNGS: Mild to moderate left greater than right bibasilar linear atelectasis and/or scarring. There is no pleural effusion or pneumothorax seen. The tracheobronchial tree is patent. MEDIASTINUM: There are no greater than 1 cm hilar or mediastinal lymph nodes. No pericardial effusi on is seen. Stable cardiomegaly. LIVER/GB: No significant abnormality is appreciated. PANCREAS: No significant abnormality is seen. SPLEEN: No significant abnormality is seen. ADRENALS: Low dense thickening to both adrenal glands consistent with benign lipid rich hyperplasia r edemonstrated. KIDNEYS: No significant abnormality is seen. BOWEL: Diverticula in the left and sigmoid colon. No CT evidence for acute diverticulitis GENITAL ORGANS: Normal size prostate with adjacent pelvic phleboliths. LYMPH NODES: No greater than 1cm abdominal or pelvic lymph nodes are appreciated. OSSEOUS STRUCTURES: Marked diffuse osseous sclerotic metastatic disease throughout entire pelvis and visualized spine along with bilateral ribs and sternum and visualized portion of both hips. Metallic hardware from bilateral shoulder surgery is partially imaged. Underlying scoliosis redemonstrated. OTHER: No significant additional abnormality is seen. IMPRESSION: Ascending aortic aneurysm up to 4.1 cm. No aneurysmal extension into the descending thora cic or intra-abdominal aorta. Diffuse osseous metastatic disease redemonstrated corresponding to most recent bone scan with interval progression from older CT studies.
== END | disposition home or self-care (01) ==
LOC: RADCTMAIN 13:43
PROVIDERS: ATTEND Internal Medicine Clinical Cardiac Electrophysiology
DX: C79.51 Secondary malignant neoplasm of bone (principal); I71.2 Thoracic aortic aneurysm, without rupture; Z85.46 Personal history of malignant neoplasm of prostate
CPT/HCPCS: 82565; 84520; 71275; 36415; 74174; Q9967

== ENCOUNTER 2021-09-13 03:39 | Emergency (ER) | payer MEDICARE, OTHER ==
[2021-09-13 04:11] VITALS: BP 152/95; PULSE 83; RESP 20; TEMP 97.8
--- NOTE | 2021-09-13 04:34 | ED ---
Upper Extremity HPI - General Chief Complaint: Extremity Injury, Upper Stated Complaint: Right shoulder pain Time Seen by Provider: 09/13/21 04:14 Source: patient, RN notes reviewed, old records reviewed Mode of arrival: ambulatory Limitations: no limitations - History of Present Illness Initial Comments: This is an 85-year-old male to the emergency department today. Patient presents today for evaluation of significant pain shoulder pain right shoulder pain with no trauma. Patient is recent travel history or sick contacts. Patient's pain is severe. Patient did have some concern for chest pain. At this time symptoms are improved any feels reassured that his shoulder pain which is from sleeping on it wrong MD Complaint: Injury to:: right, shoulder, arm -: days(s) Other Extremity Injury: Shoulder: Right, Forearm: Right Other Injuries: none Handedness: right Place: home Severity scale (1-10): 7 Improves With: none Worsens With: none Context: other (none) Associated Symptoms: denies other symptoms - Related Data Home Medications Medication Instructions Recorded Confirmed Cholecalciferol [Vitamin D3] 2,000 unit PO DAILY 05/02/15 04/02/20 Ibuprofen [Motrin] 400 mg PO Q6HR PRN 05/02/15 04/02/20 Lisinopril [Prinivil] 5 mg PO DAILY 05/02/15 04/02/20 Pravastatin Sodium [Pravachol] 10 mg PO HS 05/02/15 04/02/20 Flaxseed [Flaxseed Oil] 1,000 mg PO DAILY 12/06/15 04/02/20 Multivitamin [Men's Multi-Vitamin] 1 tab PO DAILY 12/06/15 04/02/20 [place]-3 Fatty Acids/Fish Oil [Fish 1 cap PO DAILY 12/06/15 04/02/20 Oil 1,000 mg Softgel] Vit C/E/Zn/Coppr/Lutein/Zeaxan 1 cap PO DAILY 12/06/15 04/02/20 [Preservision Areds 2 Softgel] Aspirin EC [Ecotrin Low Dose] 81 mg PO DAILY 08/25/19 04/02/20 Finasteride [Proscar] 5 mg PO DAILY 08/25/19 04/02/20 L.acidoph,Paracasei, B.lactis 1 cap PO DAILY 10/18/19 05/26/20 [Probiotic] Tamsulosin HCl [Flomax] 0.4 mg PO DAILY 08/25/19 04/02/20 Acetaminophen Tab [Tylenol Tab] 325 mg PO Q6H PRN 12/05/19 04/02/20 Cetirizine HCl [Zyrtec] 10 mg PO DAILY 12/05/19 04/02/20 Lutein/Zeaxanthin 25mg 25 mg PO DAILY 12/05/19 04/02/20 Metoprolol Succinate [Toprol XL] 12.5 mg PO DAILY 12/05/19 04/02/20 Saw [place] 450mg 450 mg PO DAILY 12/05/19 04/02/20 Zinc 50 mg PO DAILY 12/05/19 04/02/20 Allergies Allergy/AdvReac Type Severity Reaction Status Date / Time codeine AdvReac Nausea & Verified 09/13/21 04:11 Vomiting hydrocodone bitartrate AdvReac Nausea & Verified 09/13/21 04:11 [From Vicodin] Vomiting oxycodone AdvReac Nausea & Verified 09/13/21 04:11 Vomiting Penicillins AdvReac Nausea & Verified 09/13/21 04:11 Vomiting Review of Systems ROS Statement: Those systems with pertinent positive or pertinent negative responses have been documented in the HPI. ROS Other: All systems not noted in ROS Statement are negative. Past Medical History Past Medical History: Chest Pain / Angina, COPD, Hyperlipidemia, Hypertension, Musculoskeletal Disorder, Osteoarthritis (OA), Pneumonia Additional Past Medical History / Comment(s): PNEUMONIA (12/2015), DDD, BACK PAIN., shoulder pain, hx replacement both, radiation treatment for prostate cancer and now on oral Xtandi 40mg in addition to monthly injections. History of Any Multi-Drug Resistant Organisms: None Reported Past Surgical History: Back Surgery, Hernia Repair, Joint Replacement, Orthopedic Surgery Additional Past Surgical History / Comment(s): RIGHT KNEE ARTHROSCOPY, INGUINAL HERNIA X3, BACK SURGERY X2, RIGHT SHOULDER SURGERY X3 WITH TOTAL SHOULDER, LEFT SHOULDER SURGERY X2.03-19-16 revision total left shoulder Past Anesthesia/Blood Transfusion Reactions: Motion Sickness, Postoperative Nausea & Vomiting (PONV) Additional Past Anesthesia/Blood Transfusion Reaction / Comment(s): anesthesia Past Psychological History: No Psychological Hx Reported Past Alcohol Use History: None Reported Past Drug Use History: None Reported - Past Family History Mother Family Medical History: No Reported History General Exam Limitations: no limitations General appearance: alert, in no apparent distress Head exam: Present: atraumatic, normocephalic, normal inspection Eye exam: Present: normal appearance, PERRL, EOMI. Absent: scleral icterus, conjunctival injection, periorbital swelling ENT exam: Present: normal exam, mucous membranes moist Neck exam: Present: normal inspection. Absent: tenderness, meningismus, lymphadenopathy Respiratory exam: Present: normal lung sounds bilaterally. Absent: respiratory distress, wheezes, rales, rhonchi, stridor Cardiovascular Exam: Present: regular rate, normal rhythm, normal heart sounds. Absent: systolic murmur, diastolic murmur, rubs, gallop, clicks GI/Abdominal exam: Present: soft, normal bowel sounds. Absent: distended, tenderness, guarding, rebound, rigid Extremities exam: Present: normal inspection, tenderness, normal capillary refill, other (Right shoulder tenderness and pain). Absent: full ROM, pedal edema, joint swelling, calf tenderness Back exam: Present: normal inspection Neurological exam: Present: alert, oriented X3, CN II-XII intact Psychiatric exam: Present: normal affect, normal mood Skin exam: Present: warm, dry, intact, normal color. Absent: rash Course Vital Signs 09/13/21 04:07 Temperature 97.8 F Pulse Rate 83 Respiratory 20 Rate Blood Pressure 152/95 O2 Sat by Pulse 95 Oximetry - Reevaluation(s) Reevaluation #1: Medical record is reviewed Symptoms are improved here in the emergency department Patient is informed of results and questions answered Medical Decision Making - Medical Decision Making 85 male to the emergency department with significant right shoulder pain. Patient having radiculopathy and nerve impingement and right shoulder. Pain is improved here and can be discharged home - EKG Data -: EKG Interpreted by Me (EKG sinus rhythm 79 SD 202 QRS 78 QTc 444) Disposition Clinical Impression: Right shoulder strain, Neuropathic pain of right shoulder Disposition: HOME SELF-CARE Condition: Good Instructions (If sedation given, give patient instructions): Cervical Radiculopathy (ED), Shoulder Pain (ED) Is patient prescribed a controlled substance at d/c from ED?: No Referrals: Jomar Leone MD [Primary Care Provider] - 1-2 days
== END 2021-09-13 04:36 | disposition home or self-care (01) ==
LOC: EC 03:39
DX: S46.911A Strain of unspecified muscle, fascia and tendon at shoulder and upper arm level, right arm, initial encounter (principal); J44.9 Chronic obstructive pulmonary disease, unspecified; E78.5 Hyperlipidemia, unspecified; I10 Essential (primary) hypertension; M19.90 Unspecified osteoarthritis, unspecified site; M79.2 Neuralgia and neuritis, unspecified; Z79.82 Long term (current) use of aspirin; Z88.5 Allergy status to narcotic agent; Z88.0 Allergy status to penicillin; X58.XXXA Exposure to other specified factors, initial encounter
CPT/HCPCS: 93005; 99284

== ENCOUNTER → 2022-03-02 | Outpatient (CLI) | payer MEDICARE, OTHER ==
[2022-03-02 23:32] LABS: Basophils # (A) 0.02 X 10*3/uL (0.00-0.10); Basophils % (A) 0.4 %; Eosinophils # (A) 0.03 X 10*3/uL (0.04-0.35); Eosinophils % (A) 0.6 %; HCT 30.1 % (39.6-50.0); HGB 9.1 g/dL (13.0-17.0); Immature Grans, Automated 3.1 %; Lymphocytes # (A) 0.78 X 10*3/uL (0.90-5.00); Lymphocytes % (A) 16.1 %; MCH 29.1 pg (27.0-32.0); MCHC 30.2 g/dL (32.0-37.0); MCV 96.2 fL (80.0-97.0); Mean Platelet Volume 9.1 fL (9.5-12.2); Monocytes # (A) 0.49 X 10*3/uL (0.20-1.00); Monocytes % (A) 10.1 %; NRBC Per 100 WBC 2.1 /100 WBCS (0.0-0.0); Neutrophils # (A) 3.38 X 10*3/uL (1.80-7.70); Neutrophils % (A) 69.7 %; Platelet Count 116 X 10*3/uL (140-440); RBC 3.13 X 10*6/uL (4.40-5.60); RDW 19.6 % (11.5-14.5); WBC 4.85 X 10*3/uL (4.50-10.00)
[2022-03-03 00:16] LABS: % Iron Saturation 34.52 (15.00-50.00); African American GFR (CKD) 82.2 (60.0-200.0); Albumin 4.1 g/dL (3.8-4.9); Albumin/Globulin Ratio 2.02 (1.60-3.17); Anion Gap 12.5 mmol/L (10.00-18.00); BUN/Creat Ratio 23.18 Ratio (12.00-20.00); Blood Urea Nitrogen 22.6 mg/dL (9.0-27.0); Calcium 8.6 mg/dL (8.7-10.3); Carbon Dioxide 21.4 mmol/L (20.0-27.5); Potassium 4.8 mmol/L (3.5-5.5); Total Bilirubin 0.4 mg/dL (0.30-1.20); Total Protein 6.1 g/dL (6.2-8.2)
== END | disposition home or self-care (01) ==
LOC: LABWHC1 09:31
PROVIDERS: ATTEND Family Medicine
DX: D64.9 Anemia, unspecified (principal)
CPT/HCPCS: 36415; 80053; 82607; 82668; 82728; 82746; 83540; 83550; 85025

== ENCOUNTER 2022-03-17 06:07 | Day surgery (SDC) | payer MEDICARE, OTHER ==
[~2022-03-17 06:07] MED LIST changes: -CLINDAMYCIN 900 MG in DEXTROSE 5% IN WATER 50 ML IVPB ONE; +LACTATED RINGERS 1,000 ML IV SCH; -SODIUM CHLORIDE 0.9% 1,000 ML IV SCH
[2022-03-17 06:53] LABS: Glucose,Whole Blood 107 mg/dL (75-99)
[2022-03-17 06:54] VITALS: TEMP 97.1
[2022-03-17] MEDS ORDERED: LIDOCAINE 2% INJ 20 MG/ML (2 ML VIAL) ONE (07:02)
[2022-03-17] MEDS ORDERED: PROPOFOL 10 MG/ML 20 ML VIAL IV ONE (07:02)
[2022-03-17 07:50] VITALS: BP 141/78; PULSE 82; RESP 20
[2022-03-17 08:03] LABS: Anisocytosis Slight; Basophils % (A) 0 %; Eosinophils % (A) 1 %; HCT 28.2 % (39.0-53.0); HGB 9.3 gm/dL (13.0-17.5); Hypochromasia Slight; Lymphocytes # (A) 0.6 k/uL (1.0-4.8); Lymphocytes % (A) 17 %; MCH 30.6 pg (25.0-35.0); MCV 92.5 fL (80.0-100.0); Mean Platelet Volume 7.4; Monocytes # (A) 0.2 k/uL (0-1.0); Monocytes % (A) 6 %; Neutrophils # (A) 2.4 k/uL (1.3-7.7); Neutrophils % (A) 71 %; Platelet Count 162 k/uL (150-450); Poikilocytosis Slight; RBC 3.04 m/uL (4.30-5.90); RDW 19.1 % (11.5-15.5); Reticulocyte % 2.7 % (0.5-2.0); WBC 3.4 k/uL (3.8-10.6)
--- NOTE | 2022-03-17 08:58 | PCN ---
PROCEDURE NOTE DATE OF PROCEDURE: 03/17/2020 PREOPERATIVE DIAGNOSES: 1. Anemia. 2. Thrombocytopenia. POSTOPERATIVE DIAGNOSES: 1. Anemia. 2. Thrombocytopenia. PROCEDURE: Bone marrow aspirate and biopsy attempt. SITE: Right iliac crest. ANESTHESIA: Local with IV systemic sedation. DETAILS: Utilizing sterile technique, the skin overlying the iliac crest was prepared with Betadine and alcohol. After adequate sterile draping and local anesthesia, a size 11 Jamshidi needle was utilized to access the periosteum. Unfortunately, despite multiple attempts, the needle would not advance despite changing needles. The procedure will be cancelled and rescheduled with CT scan guidance using a drill. No specimen was obtained. The patient tolerated the procedure well. MMODL / IJN: [id number] /
== END 2022-03-17 08:22 | disposition home or self-care (01) ==
LOC: OR 06:07
PROVIDERS: ATTEND Internal Medicine Hematology & Oncology
DX: D64.9 Anemia, unspecified (principal); E78.5 Hyperlipidemia, unspecified; Z85.46 Personal history of malignant neoplasm of prostate; Z53.8 Procedure and treatment not carried out for other reasons; Z98.49 Cataract extraction status, unspecified eye; Z96.611 Presence of right artificial shoulder joint; Z98.890 Other specified postprocedural states; I20.9 Angina pectoris, unspecified; I10 Essential (primary) hypertension; Z97.2 Presence of dental prosthetic device (complete) (partial); Z86.19 Personal history of other infectious and parasitic diseases; Z87.891 Personal history of nicotine dependence; Z79.1 Long term (current) use of non-steroidal anti-inflammatories (NSAID); Z79.891 Long term (current) use of opiate analgesic; Z79.899 Other long term (current) drug therapy; Z88.5 Allergy status to narcotic agent; Z88.0 Allergy status to penicillin
CPT/HCPCS: 85025; 85045; 38222; J2704; J2001

== ENCOUNTER → 2022-04-02 | Day surgery (SDC) | payer MEDICARE, OTHER ==
[~2022-04-02] MED LIST changes: +MIDAZOLAM 2 MG/2 ML VIAL ONE; +PROPOFOL 10 MG/ML 20 ML VIAL IV ONE; +fentaNYL (PF) 50 MCG/ML 2 ML AMP ONE
[2022-04-02 08:41] LABS: Anisocytosis Slight; Basophils % (A) 1 %; Eosinophils % (A) 1 %; HCT 26.5 % (39.0-53.0); HGB 8.7 gm/dL (13.0-17.5); Hypochromasia Slight; Lymphocytes # (A) 0.4 k/uL (1.0-4.8); Lymphocytes % (A) 13 %; MCH 30.5 pg (25.0-35.0); MCHC 32.9 g/dL (31.0-37.0); MCV 92.6 fL (80.0-100.0); Mean Platelet Volume 7.3; Monocytes # (A) 0.2 k/uL (0-1.0); Monocytes % (A) 7 %; Neutrophils # (A) 2.5 k/uL (1.3-7.7); Neutrophils % (A) 76 %; Platelet Count 175 k/uL (150-450); Poikilocytosis Slight; RBC 2.87 m/uL (4.30-5.90); RDW 18.8 % (11.5-15.5); Reticulocyte % 2.8 % (0.5-2.0); WBC 3.3 k/uL (3.8-10.6)
[2022-04-02 08:57] LABS: INR 1.1 (<1.2); Prothrombin Time 11.4 sec (9.0-12.0)
[2022-04-02 09:02] VITALS: BP 124/73; PULSE 78; RESP 18; TEMP 98.2
--- NOTE | 2022-04-02 14:46 | CT ---
EXAMINATION TYPE: CT biopsy bone marrow DATE OF EXAM: 04/02/2022 HISTORY: Metastatic prostate cancer COMPARISON: CT 07/07/2021 Maximal barrier technique was utilized, hand hygiene obtained with soap and water. The skin overlyin g a suitable path to the posterior left iliac bone was localized using CT and the overlying skin was prepped and draped. Lidocaine used for local anesthesia. A skin ana made with a scalpel. Using CT guidance, access was gained to the posterior left iliac bone with a bone marrow sample needle. Aspi rate of approximately 7 to 8 cc was performed with 3 separate syringes. Core specimen submitted to adelia christensen. Following the procedure no immediate complications. The patient is discharged in stable condition. Hemostasis achieved. Patient was discharged from CT scan suite in the care of anesthesia service. IMPRESSION: SUCCESSFUL CT GUIDED BONE MARROW BIOPSY. PATHOLOGY PENDING. THIS PROCEDURE WAS PERFORMED BY THE UND ERSIGNED.
== END ==
LOC: RADPROMAIN 07:42
PROVIDERS: ATTEND Internal Medicine Hematology & Oncology
DX: D72.810 Lymphocytopenia (principal); C61 Malignant neoplasm of prostate; D64.9 Anemia, unspecified; M19.90 Unspecified osteoarthritis, unspecified site; E78.5 Hyperlipidemia, unspecified; Z98.42 Cataract extraction status, left eye; Z98.41 Cataract extraction status, right eye; Z96.611 Presence of right artificial shoulder joint; Z95.818 Presence of other cardiac implants and grafts; Z98.890 Other specified postprocedural states; Z97.2 Presence of dental prosthetic device (complete) (partial); Z86.19 Personal history of other infectious and parasitic diseases; Z87.891 Personal history of nicotine dependence; Z79.1 Long term (current) use of non-steroidal anti-inflammatories (NSAID); Z79.52 Long term (current) use of systemic steroids; Z79.899 Other long term (current) drug therapy; Z88.5 Allergy status to narcotic agent; Z88.0 Allergy status to penicillin
CPT/HCPCS: 85025; 85610; 85045; 36415; 77012; 38222; C1830; J2250; J3010; J2704

== ENCOUNTER → 2022-04-13 | Outpatient (CLI) | payer MEDICARE, OTHER ==
--- NOTE | 2022-04-13 22:53 | MR ---
EXAMINATION TYPE: MR brain wo/w con DATE OF EXAM: 04/13/2022 COMPARISON: 08/22/2015 HISTORY: Facial weakness. CONTRAST: Standard multiplanar, multisequence MRI departmental protocol images were obtained without contrast a nd with 7.5 mL intravenous Gadavist gadolinium contrast. There is diffuse cerebral cortical atrophy. Diffusion images show no sign of an acute cortical infarc t. There is no mass effect nor midline shift. There is some mild patchy increased signal in the periv entricular white matter adjacent to the ventricles. This is likely microvascular ischemia. Foci measu re up to 5 mm. No evidence of intracranial hemorrhage. The brainstem is intact. Cerebellum is intact. Sella turcica appears normal. Corpus callosum is intact. No evidence of orbital mass. The contrast images show no pathologic enhancement. There is normal enhancement of the venous sinuses . Optic chiasm appears normal. IMPRESSION: White matter signal changes show some progression compared to old exam and consistent with microvascu lar ischemia. No evidence of cortical infarct. Cerebral atrophy.
== END | disposition home or self-care (01) ==
LOC: RADMRIMAIN 04-08 16:44
PROVIDERS: ATTEND Internal Medicine Hematology & Oncology
DX: G31.9 Degenerative disease of nervous system, unspecified (principal); I67.82 Cerebral ischemia
CPT/HCPCS: 70553; A9585

== ENCOUNTER 2022-07-28 08:50 | Emergency (ER) | payer MEDICARE ==
[2022-07-28 08:57] VITALS: BP 113/69; PULSE 88; RESP 18; TEMP 98
--- NOTE | 2022-07-28 09:21 | ED ---
Head Injury HPI - General Chief complaint: Head Injury Stated complaint: fall Time Seen by Provider: 07/28/22 09:05 Source: patient, RN notes reviewed Mode of arrival: ambulatory Limitations: no limitations - History of Present Illness Initial comments: 86-year-old male presents emergency Department with chief complaint trip and fall. Patient states she fell backwards striking his head. Patient states that his tetanus is up-to-date. Patient does have abrasion to his scalp. Patient denies lose consciousness. Patient was a mild headache denies any other associated injury including back pain, lower extremity, upper extremity trauma. There is no reports of blood thinners. - Related Data Home Medications Medication Instructions Recorded Confirmed Cholecalciferol [Vitamin D3] 2,000 unit PO DAILY 05/02/15 07/01/22 Pravastatin Sodium [Pravachol] 10 mg PO HS 05/02/15 07/01/22 Multivitamin [Men's Multi-Vitamin] 1 tab PO DAILY 12/06/15 07/01/22 Vit C/E/Zn/Coppr/Lutein/Zeaxan 1 cap PO DAILY 12/06/15 07/01/22 [Preservision Areds 2 Softgel] Acetaminophen Tab [Tylenol Tab] 325 mg PO Q6H PRN 12/05/19 07/01/22 Saw [place] 450mg 450 mg PO DAILY 12/05/19 07/01/22 Calcium Carbonate [Calcium] 2 tab PO DAILY 03/12/22 07/01/22 Cyanocobalamin (Vitamin B-12) 1 tab SL DAILY 03/12/22 07/01/22 [Vitamin B12] Xgeva 1 dose IM Q30D 03/12/22 07/01/22 traMADol HCL 50 mg PO Q6H 03/12/22 07/01/22 Alfuzosin HCl [Alfuzosin HCl ER] 10 mg PO DAILY 06/19/22 07/01/22 Gabapentin 300 mg PO DAILY 06/19/22 07/01/22 Sulfamethox-Tmp 800-160Mg [Bactrim 1 tab PO Q12HR 07/01/22 07/01/22 DS 800-160 mg] Allergies/Adverse reactions: Allergies Allergy/AdvReac Type Severity Reaction Status Date / Time codeine AdvReac Nausea & Verified 07/28/22 08:56 Vomiting hydrocodone bitartrate AdvReac Nausea & Verified 07/28/22 08:56 [From Vicodin] Vomiting oxycodone AdvReac Nausea & Verified 07/28/22 08:56 Vomiting Penicillins AdvReac Nausea & Verified 07/28/22 08:56 Vomiting Review of Systems ROS Statement: Those systems with pertinent positive or pertinent negative responses have been documented in the HPI. ROS Other: All systems not noted in ROS Statement are negative. Past Medical History Past Medical History: Cancer, Chest Pain / Angina, COPD, Hyperlipidemia, Hypertension, Musculoskeletal Disorder, Osteoarthritis (OA), Pneumonia Additional Past Medical History / Comment(s): PNEUMONIA (12/2015), DDD, BACK PAIN., shoulder pain, hx replacement both, radiation treatment for prostate cancer, mets to bone History of Any Multi-Drug Resistant Organisms: None Reported Past Surgical History: Back Surgery, Hernia Repair, Joint Replacement, Orthopedi c Surgery Additional Past Surgical History / Comment(s): RIGHT KNEE ARTHROSCOPY, INGUINAL HERNIA X3, BACK SURGERY X2, RIGHT SHOULDER SURGERY X3 WITH TOTAL SHOULDER, LEFT SHOULDER SURGERY X2.03-19-16 revision total left shoulder Past Anesthesia/Blood Transfusion Reactions: Motion Sickness, Postoperative Nausea & Vomiting (PONV) Additional Past Anesthesia/Blood Transfusion Reaction / Comment(s): anesthesia Past Psychological History: No Psychological Hx Reported Smoking Status: Former smoker Past Alcohol Use History: None Reported Past Drug Use History: None Reported - Past Family History Mother Family Medical History: No Reported History General Exam Limitations: no limitations General appearance: alert, in no apparent distress Head exam: Present: atraumatic, normocephalic. Absent: normal inspection (Scalp abrasion) Eye exam: Present: normal appearance, PERRL, EOMI. Absent: scleral icterus, conjunctival injection, periorbital swelling ENT exam: Present: normal exam, normal oropharynx, mucous membranes moist Neck exam: Present: normal inspection, full ROM. Absent: tenderness, meningismus, lymphadenopathy Respiratory exam: Present: normal lung sounds bilaterally. Absent: respiratory distress, wheezes, rales, rhonchi, stridor Cardiovascular Exam: Present: regular rate, normal rhythm, normal heart sounds. Absent: systolic murmur, diastolic murmur, rubs, gallop, clicks Neurological exam: Present: alert, oriented X3, CN II-XII intact, reflexes normal. Absent: motor sensory deficit Skin exam: Present: warm, dry, intact, normal color. Absent: rash Course Vital Signs 07/28/22 08:53 Temperature 98 F Pulse Rate 88 Respiratory 18 Rate Blood Pressure 113/69 O2 Sat by Pulse 98 Oximetry Medical Decision Making - Medical Decision Making CT was obtained which shows no acute intracranial process there is known metastatic disease of the spine, patient neurologically intact will be discharged in stable condition return parameters were discussed. Disposition Clinical Impression: Fall, Scalp laceration Disposition: HOME SELF-CARE Condition: Stable Instructions (If sedation given, give patient instructions): Head Injury (ED) Additional Instructions: Please return to the Emergency Department if symptoms worsen or any other concerns. Is patient prescribed a controlled substance at d/c from ED?: No Referrals: Jomar Leone MD [Primary Care Provider] - 1-2 days Time of Disposition: 10:23
--- NOTE | 2022-07-28 10:14 | CT ---
EXAMINATION TYPE: CT brain cspine wo con CT DLP: 1418.7 mGycm, Automated exposure control for dose reduction was used. DATE OF EXAM: 07/28/2022 9:52 AM COMPARISON: Nuclear medicine bone scan 05/29/2020 CT C-spine 11/27/2021 CLINICAL INDICATION:Male, 86 years old with history of fall, pain; Fall, laceration on posterior aspe ct of head. TECHNIQUE: Brain: Multiple axial CT images of the brain were obtained without IV contrast. Cspine: Axial CT images from the skull base to the inferior aspect of T2 we obtained without intraven ous contrast. Coronal and sagittal reformatted images were also reviewed. FINDINGS: Brain: Extra-axial spaces: No abnormal extra-axial fluid collections. Ventricular system: Dilatation in proportion to cerebral atrophy. Cerebral parenchyma: Cerebral atrophy. No acute intraparenchymal hemorrhage or mass effect. The naranjo -white junction is well differentiated. Scattered hypoattenuating areas are seen within the white mat ter. Cerebellum: Unremarkable. Mass effect: No evidence of midline shift. Intracranial vasculature: Atherosclerotic calcifications of the intracranial vessels. Soft tissues: Posterior left skull laceration noted. Calvarium/osseous structures: No depressed skull fracture. Paranasal sinuses and mastoid air cells: Clear. Visualized orbits: Bilateral aphakia Cervical spine: Fracture: None. Osseous structures: Scattered osteoblastic metastatic disease seen throughout the spine, clavicles, s ternum and ribs. Multilevel degenerative disc disease changes with endplate spurring and disc osteoph yte complex's. Vertebral alignment: Within normal limits. Spinal canal/Neural Foramina: No evidence of significant spinal canal narrowing. Facet joint uncovert ebral joint arthropathy scattered throughout the cervical spine with varying degrees of neural forami nal stenosis. Neck soft tissues: Prevertebral soft tissues are within normal limits. Other: The airway is patent. Right pleural effusion. IMPRESSION: 1. No acute intracranial process. 2. Nonspecific white matter changes likely related to chronic microangiopathy. 3. Posterior left skull laceration. 4. No evidence of cervical spine fracture. 5. Mild multilevel degenerative disc disease. 6. 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
== END 2022-07-28 10:50 | disposition home or self-care (01) ==
LOC: EC 08:50
DX: S01.01XA Laceration without foreign body of scalp, initial encounter (principal); E78.5 Hyperlipidemia, unspecified; I10 Essential (primary) hypertension; J44.9 Chronic obstructive pulmonary disease, unspecified; Z87.891 Personal history of nicotine dependence; Z88.0 Allergy status to penicillin; Z88.5 Allergy status to narcotic agent; Z79.899 Other long term (current) drug therapy; W01.0XXA Fall on same level from slipping, tripping and stumbling without subsequent striking against object, initial encounter
CPT/HCPCS: 70450; 72125; 99283